=== PATIENT | female | born 1955 | race Caucasian/White ===

== ENCOUNTER 2017-01-22 06:51 | Inpatient (IN) | payer OTHER ==
--- NOTE | 2017-01-07 21:43 | HP ---
PREOPERATIVE HISTORY AND PHYSICAL: DATE OF PREOPERATIVE HISTORY AND PHYSICAL EXAMINATION: 01/07/17. DATE OF ADMISSION: This patient is scheduled for admission by Dr. Torres on 01/22/17. ATTENDING SURGEON: James Torres MD (dictated by Kay Palma NP) CHIEF COMPLAINT: Morbid obesity. HISTORY OF PRESENT ILLNESS: The patient is a 61-year-old morbidly obese female with a body mass index of 33.7 with obesity-related comorbidities of poorly- controlled type 2 diabetes, hypertension, and degenerative joint disease. She is seeking bariatric surgery as a more permanent solution to her poorly controlled type 2 diabetes, hypertension and degenerative joint disease and also her inability to sustain significant weight loss with conventional means. She has completed all of the necessary preoperative diagnostic evaluations, testing, and has been deemed an appropriate candidate by Dr. Torres to proceed with laparoscopic Adrianne-en-Y gastric bypass. Dr. Torres has discussed the nature of the surgical procedure, the expected results of surgery, the relevant risks, benefits, and alternatives and today, I have reviewed the typical hospitalization, postoperative care, and recovery. The patient understands the need for compliance with postop stages of the diet, vitamin and mineral supplementation, exercise and followup appointments with Dr. Torres and the dietitian. The patient has had a chance to ask questions and stated that she understands the information and is satisfied with the answers given to her questions. She will sign surgical consent on the day of surgery. PAST MEDICAL HISTORY: Significant for poorly-controlled type 2 diabetes, hypertension, degenerative joint disease of knees and ankles, urinary stress incontinence, and GERD. PAST SURGICAL HISTORY: Arthroscopy of the right knee by Dr. Hobson about 8 months ago, tubal ligation, right elbow surgery for ulnar nerve repair, umbilical hernia repair in infancy. MEDICATIONS: 1. Lisinopril/hydrochlorothiazide 20/25 mg 1 tablet by mouth daily. 2. Repaglinide 0.5 mg 1 tablet 3 times a day before meals, which Dr. Whipple has instructed the patient to discontinue preoperatively. 3. Toujeo SoloSTAR 300 units/mL 66 units subcutaneously twice a day. 4. Aspirin 81 mg p.o. daily and she will hold the aspirin for 1 week preoperatively. 5. Januvia 100 mg p.o. daily, which she will stop preoperatively. 6. Celebrex 100 mg p.o. b.i.d. as needed and she will also stop that preoperatively. ALLERGIES: No known drug allergies. SOCIAL HISTORY: She is and has 3 children. She states that she has good support from her . 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 She denies the use of tobacco or other substances and alcohol intake is typically 1 drink per week. FAMILY HISTORY: Father at age 60 from heart failure with a history of COPD and obesity. Mother , age 83, with the history of TIAs. One of her brother is status post gastric bypass with resolution of his type 2 diabetes ; all of her siblings have been diagnosed with diabetes. No family history of anesthesia problems, bleeding tendencies, or clotting disorders. REVIEW OF SYSTEMS: General: She denies any recent acute illnesses. HEENT: Benign. Cardiovascular: She is treated for hypertension. She denies any history of chest pain, palpations, NH or angina or heart murmur. Respiratory: Denies any history of asthma, chronic cough, shortness of breath or pneumonia. She has never been tested for sleep apnea. She denies any history of deep vein thrombosis or pulmonary embolism. She denies any previous anesthesia complications. She denies any bleeding tendencies and has never received a blood transfusion. Gastrointestinal: She has occasional acid reflux. She underwent upper endoscopy in January 2016, reported as normal. No evidence of erosive esophagitis. Gallbladder ultrasound revealed a normal gallbladder. Genitourinary: She has stress urinary incontinence. No other problems reported. Musculoskeletal: She has complaints of knee and ankle pain and underwent arthroscopy of the right knee about 8 months ago and has a history of degenerative joint disease. She denies any history of anxiety or depression. Endocrine: She is treated for type 2 diabetes, which has been difficult to control. Dr. Whipple manages her diabetes and gave her guidelines for adjusting her insulin while she is on the preop diet. She states that her fingerstick blood sugar is typically in the 200 range, but can be as high as 300. She denies any history of thyroid dysfunction. PHYSICAL EXAMINATION GENERAL SURVEY: The patient is a 61-year-old morbidly obese female, in no acute distress. VITAL SIGNS: Height 67 inches, weight 219 pounds, body mass index 34.3, blood pressure 126/82, pulse 90, respiratory rate 16, temperature 98, tympanic. HEENT: Benign. NECK: Supple. No cervical lymphadenopathy. No thyromegaly. BACK: No CVA tenderness. LUNGS: Breath sounds bilaterally clear and equal. HEART: Regular rate and rhythm. No murmurs or rubs appreciated. ABDOMEN: Obese, soft, nondistended, nontender throughout. No obvious masses, organomegaly or evidence of umbilical hernia. PELVIC: Exam deferred. RECTAL: Exam deferred. EXTREMITIES: Warm without edema or skin ulcerations. NEUROLOGIC: Alert and oriented x3. Steady gait. SKIN: Warm, dry, and intact. IMPRESSION: 1. Morbid obesity. 2. Poorly-controlled type 2 diabetes. 3. Hypertension. PLAN: AA admission to Dr. Torres' service for laparoscopic Adrianne-en-Y gastric bypass on 01/22/17. KAY PALMA NP CC: Dr. James Torres, [facility]; Dr. Liz Bennett; Dr. Doe Whipple * [id number]/[facility] #: [id number] MTDD
[~2017-01-22 06:51] MED LIST: Buffered Lidocaine 1% SYRIN* 3 ML/SYR SYRINGE INTRADERM ONE; Dexamethasone IV* 4 MG/ML 1 ML (4 MG) IV SLOW PU ONE
[2017-01-22] MEDS ORDERED: Bupivacaine 0.5% W/EPI SDV* 30 ML VIAL ONE (07:15)
[2017-01-22] MEDS ORDERED: Methylene Blue 1% (ANTIDOTE)* 10 MG/ML 1 ML SDV VIAL IVPB ONE (07:16)
[2017-01-22] MEDS ORDERED: ceFAZolin 2 GM PREMIX(*) 2 GM/50 ML BAG IVPB ONE (07:23)
[2017-01-22] MEDS ORDERED: Clindamycin 900 MG IVPREMIX(* 900 MG/50 ML SDV IV ONE (07:23)
[2017-01-22] MEDS ORDERED: Dexamethasone IV* 4 MG/ML 1 ML (4 MG) ONE (07:23)
[2017-01-22] MEDS ORDERED: ceFAZolin 1 GM in Dextrose (*) 1 GM/50 ML BAG IVPB ONE (07:23)
[2017-01-22] MEDS ORDERED: Heparin VIAL(*) 5000 UNITS/ML VIAL (FIVE THOUSAND) ONE (07:23)
[2017-01-22] MEDS ORDERED: fentaNYL* 50 MCG/ML 5 ML VIAL (250 MCG VIAL) ONE (07:41)
[2017-01-22] MEDS ORDERED: Midazolam* 1 MG/ML 5 ML VIAL (5 MG) ONE (07:41)
[2017-01-22] MEDS ORDERED: Atracurium* 10 MG/ML 10 ML VIAL ONE (07:41)
[2017-01-22] MEDS ORDERED: Ketorolac INJ* 30 MG/ML 1 ML VIAL ONE (07:42)
[2017-01-22] MEDS ORDERED: Lidocaine 2% PF* 5 ML VIAL ONE (07:42)
[2017-01-22] MEDS ORDERED: Propofol* 10 MG/ML 20 ML BTL IV PUSH ONE (07:42)
[2017-01-22] MEDS ORDERED: Ondansetron INJ* 2 MG/ML VIAL ONE (07:42)
[2017-01-22] MEDS ORDERED: Scopolamine 1.5 mg* PATCH TRANSDERM PRN (08:03)
[2017-01-22] MEDS ORDERED: HYDROmorphone* 1 MG/ML 1 ML SYR IV PRN ×2 (08:03→10:14)
[2017-01-22] MEDS ORDERED: Ondansetron INJ* 2 MG/ML VIAL IV PRN ×2 (08:03→10:14)
[2017-01-22] MEDS ORDERED: fentaNYL* 50 MCG/ML 2 ML VIAL (100 MCG VIAL) IV PRN (08:03)
[2017-01-22] MEDS ORDERED: DiMENhydriNATE IV* 50 MG/ML VIAL IV PUSH PRN (08:03)
[2017-01-22] MEDS ORDERED: EPHEDrine (Pressors)* 50 MG/ML VIAL ONE (08:27)
[2017-01-22] MEDS ORDERED: Glycopyrrolate IV* 0.2 MG/ML 1 ML VIAL ONE (08:46)
[2017-01-22] MEDS ORDERED: Phenylephrine IV* 40 MCG/ML 10 ML SYRINGE ONE (08:55)
[2017-01-22] MEDS ORDERED: diPHENhydraMINE IV* 50 MG/ML 1 ml VIAL (BENADRYL) SLOW PUSH PRN (10:14)
[2017-01-22] MEDS ORDERED: Acetaminophen ADULT LIQ* 650 MG/20.3 ML UDC PO PRN (10:14)
[2017-01-22] MEDS ORDERED: HYDROcodone/ACET. 7.5/325 LIQ* 15 ML UDC PO PRN (10:14)
[2017-01-22] MEDS ORDERED: Insulin REGULAR(*) 1 UNITS UNIT SUBCUT SCH (12:00)
[2017-01-22] MEDS: Ketorolac INJ* 30 MG/ML 1 ML VIAL IV PRN ×2 (16:23→22:49)
[2017-01-22] MEDS: Insulin REGULAR(*) 1 UNITS UNIT SUBCUT SCH (18:05)
[2017-01-23] MEDS: Insulin REGULAR(*) 1 UNITS UNIT SUBCUT SCH ×4 (00:06→18:07)
--- NOTE | 2017-01-23 09:14 | PN ---
Progress Note - Progress Note SOAP: Subjective:minimal discomfort,no nausea,voided after ruth out,up walking, passed flatus [] Objective:afeb,VSS,lungs:clear bilat;heart RRR;abd:+bs,soft,dressings intact over incisions,no erythema;ext:nontender Vital Signs Temp 97.4 F 01/23/17 07:58 Pulse 62 01/23/17 07:58 Resp 18 01/23/17 07:58 BP 130/68 01/23/17 07:58 Pulse Ox 95 01/23/17 07:58 Intake & Output 01/22/17 01/23/17 01/23/17 18:59 06:59 18:59 Intake Total 2456 1650 826 Output Total 350 1400 450 Balance 2106 250 376 Weight 207 lb 6.4 oz Intake: IV Fluids 2456 1650 826 LR 2456 1650 826 Oral 0 0 Output: Urine 100 1400 450 Ruth 250 Other: # Bowel Movements 0 # Voids 1 [] Assessment:POD#1 s/p lap gastric bypass,doing well [] Plan:start zhane clears if ok with Dr Torres,ambulate,IS []
[2017-01-23] MEDS: Pantoprazole IV* 40 MG IV SCH (10:20)
--- NOTE | 2017-01-23 11:09 | PN ---
Progress Note - Progress Note SOAP: Subjective: Feels well. Pain controlled. Started drinking. No nausea. Had flatus. Walking about feels good. Objective: Vital Signs Temp 97.4 F 01/23/17 07:58 Pulse 62 01/23/17 07:58 Resp 18 01/23/17 07:58 BP 130/68 01/23/17 07:58 Pulse Ox 95 01/23/17 07:58 Appears NAD, sitting up in chair. Intake & Output 01/22/17 01/23/17 01/23/17 18:59 06:59 18:59 Intake Total 2456 1650 826 Output Total 350 1400 450 Balance 2106 250 376 Weight 207 lb 6.4 oz Intake: IV Fluids 2456 1650 826 LR 2456 1650 826 Oral 0 0 Output: Urine 100 1400 450 Cisneros 250 Other: # Bowel Movements 0 # Voids 1 Assessment: POD#1 s/p LRYGB. Doing well. Plan: Clears. PO meds. Pulm toilet/amb. Likely home in AM.
[2017-01-23] MEDS: D5W 1/2 NS KCl 20 Meq 1000 ML* 1,000 ML IV SCH ×2 (11:57→20:09)
--- NOTE | 2017-01-23 16:03 | OP ---
DATE OF OPERATION: 01/22/17 - ROOM #353 DATE OF : 59 SURGEON: James Torres MD LEARNING DESIGN SPECIALIST: Anirudh Caceres MD ANESTHESIOLOGIST: Dylan Navarro MD ANESTHESIA: General endotracheal. PRE-OP DIAGNOSIS: Class 2 obesity with diabetes. POST-OP DIAGNOSIS: Class 2 obesity with diabetes. OPERATIVE PROCEDURE: Laparoscopic Adrianne-en-Y gastric bypass. ESTIMATED BLOOD LOSS: Less than 50 mL. IV FLUIDS: 2.1 L of crystalloid. SPECIMEN: None. DRAINS: None. COMPLICATIONS: None. COUNTS: The instrument, needle, and sponge counts were correct. DESCRIPTION OF PROCEDURE: The patient was brought to the operating room and placed on the table supine. Sequential compression devices were placed on both lower extremities and general anesthesia was administered. A Cisneros catheter was placed. Her abdomen was prepped and draped in the usual sterile fashion. Intravenous antibiotics were administered. Time-out was performed. Local anesthetic was infiltrated into the skin and soft tissue prior to making each incision. Entry to the abdomen was through a left upper quadrant incision used to accommodate a 12-mm optical trocar. After accessing the peritoneal cavity, carbon dioxide was insufflated to a pressure of 15 mmHg. Under direct visualization, a 12- mm bladeless trocar was placed supraumbilically and also in the right upper quadrant. 5-mm trocars were placed in the right upper quadrant medially and left upper quadrant laterally. A Rafita liver retractor was placed percutaneously in the subxiphoid position and used to elevate the left lobe of the liver. There were omental adhesions to the anterior abdominal wall in the lower abdomen. These were taken down using combination of cautery dissection and LigaSure. After freeing the omentum, the attention was turned to the gastric pouch. A dissection on the anterior aspect of the left el of the diaphragm was performed bluntly to open the retroperitoneum. Next, the perigastric dissection was undertaken on the lesser curvature of the stomach to enter the lesser sac and then with several firings of the Endo DARIO stapler with chaudhry cartridges, a gastric pouch was created approximating 20 to 30 mL volume. The staple lines were noted to be intact and hemostatic. Next, the omentum and transverse colon were retracted superiorly and ligament of Treitz was identified and then jejunum was measured out 50 cm. At this point , the jejunum was sutured to the lateral staple line on the gastric pouch with 2 -0 silk. Next, gastrotomy was created in the pouch, enterotomy created in the proposed Adrianne limb, and then a gastrojejunal anastomosis was created using a 30-mm Endo DARIO stapler with the chaudhry cartridge, and then the common gastroenterotomy was run closed with 3-0 Maxon over a 36-Thai gastric lavage tube. The omega loop of the intestine was divided with the Endo DARIO stapler with the chaudhry cartridge to complete the anastomosis. The anastomosis was then tested with methylene blue dye solution instilled through the orogastric tube with distal occlusion on the Adrianne limb. No leak was identified. The solution was aspirated and the tube was removed. Subsequently, the patient was positioned supine and the Adrianne limb was measured out for 75 cm at which point a functional end-to-side jejunojejunostomy was created using a 60-mm linear stapler with chaudhry cartridge. The common enterotomy was then again run closed with 3-0 Maxon. Finally, the mesenteric defect for jejunojejunostomy was closed with 3-0 silk in running fashion. After assuring hemostasis, the Rafita liver retractor was removed and the ports removed, and the carbon dioxide was released from the abdomen. The skin incisions were closed with lawrence and dressings were applied. The patient tolerated this procedure well. She was extubated uneventfully and she was transferred to the recovery room in stable condition. CC: Liz Bennett MD * [id number]/[facility] #: [id number] KARINA
[2017-01-24] MEDS: Insulin REGULAR(*) 1 UNITS UNIT SUBCUT SCH ×3 (00:04→11:28)
[2017-01-24] MEDS: D5W 1/2 NS KCl 20 Meq 1000 ML* 1,000 ML IV SCH (04:33)
[2017-01-24] MEDS: Ketorolac INJ* 30 MG/ML 1 ML VIAL IV PRN (04:42)
[2017-01-24 07:48] VITALS: BP 138/74
[2017-01-24] MEDS: Pantoprazole IV* 40 MG IV SCH (09:22)
--- NOTE | 2017-01-24 09:50 | PN ---
Progress Note - Progress Note SOAP: Subjective: Feels well. Tolerating po well. Voiding and having flatus. Pain controlled with oral meds. Objective: [] Vital Signs Temp 98.0 F 01/24/17 07:28 Pulse 68 01/24/17 07:28 Resp 18 01/24/17 08:00 BP 138/74 01/24/17 07:28 Pulse Ox 95 01/24/17 08:00 Abd: ND, soft, incis c/d/i, no erythema, NT. Intake & Output 01/23/17 01/24/17 01/24/17 18:59 06:59 18:59 Intake Total 1309 1999 Output Total 1400 2500 400 Balance -91 -501 -400 Intake: IV Fluids 1234 1909 D5W 1/2 NS 20 meq KCL 1909 LR 1234 Oral 75 90 Output: Urine 1400 2500 400 Assessment: []POD#2 s/p LRYGB. Doing well. Plan: Home today. Continue lisinopril and insulin SS at home. She has f/u with Dr. Whipple planned. RTO next week for lawrence.
[2017-01-25] MEDS ORDERED: Scopolomine PATCH Remove* 1 NOTE MISC PATCH OFF ONE (08:04)
== END 2017-01-24 11:48 | disposition home or self-care (01) | DRG 621 ==
LOC: AA 06:51 → SSU 12:07
PROVIDERS: ADMIT Surgery; ATTEND Surgery
PROC: 0D164ZA Bypass Stomach to Jejunum, Percutaneous Endoscopic Approach (ICD-10-PCS; principal; 2017-01-22 08:00)
DX: E66.01 Morbid (severe) obesity due to excess calories (principal); E11.65 Type 2 diabetes mellitus with hyperglycemia; I10 Essential (primary) hypertension; N39.3 Stress incontinence (female) (male); K21.9 Gastro-esophageal reflux disease without esophagitis; M19.072 Primary osteoarthritis, left ankle and foot; M19.071 Primary osteoarthritis, right ankle and foot; M17.0 Bilateral primary osteoarthritis of knee; Z68.33 Body mass index [BMI] 33.0-33.9, adult; Z98.51 Tubal ligation status; Z82.49 Family history of ischemic heart disease and other diseases of the circulatory system; Z83.3 Family history of diabetes mellitus; Z82.5 Family history of asthma and other chronic lower respiratory diseases; Z84.89 Family history of other specified conditions; Z82.0 Family history of epilepsy and other diseases of the nervous system; Z79.4 Long term (current) use of insulin
CPT/HCPCS: 94760; C1776; J0690; J1100; J1170; J1644; J1885; J2250; J2405; J2704; J3010

== ENCOUNTER 2017-12-27 15:50 | Emergency (ER) | payer OTHER ==
[2017-12-27 15:58] VITALS: BP 141/90
--- OUTSIDE RECORDS SUMMARY | 2017-12-27 15:59 | XMS REPORT ---
:1955 External Reference #:[id number] Author Organization [facility] Address [address] [address] Phone [phone] Care Team Providers Name Role Phone Liz Bennett MD Primary Care Physician Unavailable Payers Type Date Identification Numbers Payment Provider Subscriber Commercial Policy Number: [id number] [employer] Celia Randall Branham Group Number: [id number] [address] PayID: [id number] [place] [address] Commercial Effective: 2015 Policy Number: [id number] [facility] Group Name: [facility] [address] PayID: [id number] [place] [address] Commercial Effective: 2012 Policy Number: Lifetime Benefit Jack Yonas [id number] Solution Expires: 2016 Group Number: [id number] [address] PayID: [place] [address] Medigap Part B Expires: 2014 Policy Number: [id number] [employer] Jack Group Number: [id number] [address] PayID: [place] [address] Problems Date Description Provider Status Onset: 02/05/2010 Benign essential hypertension Liz Bennett M.D. Active Onset: 12/15/2013 Type 2 diabetes mellitus Liz Bennett M.D. Active Onset: 05/17/2015 Chondromalacia of patella Austyn Hobson M.D. Active Onset: 05/17/2015 Derangement of knee Austyn Hobson M.D. Active Onset: 03/01/2016 Encounter for other orthopedic Austyn Hobson M.D. Active aftercare Family History Date Family Member(s) Problem(s) Comments General Diabetes : (age 60 Father due to CHF ephysema. Years) : (age 83 Mother due to Natural HI in her 70s Years) Causes Siblings Siblings: 3; 2 have DM. had gastric bypass and Twin brother has DM his diabetes resolved. First Brother Diabetes Second Brother Diabetes Type II First Sister Diabetes Type II Social History Type Date Description Comments Marital Status Lives With Occupation assistant director at [employer] Cigarette Use Never Smoked Cigarettes Smoked for 2 years and quit age 24 ETOH Use Rarely consumes alcohol Smoking Patient is a former smoker Exercise Type/Frequency Exercises regularly Allergies, Adverse Reactions, Alerts Date Description Reaction Status Severity Comments 06/23/2010 No Known Drug Allergy active Medications Medication Date Status Form Strength Qnty SIG Indications Ordering Provider Atorvastatin 12/09 Active Tablets 10mg 30tab 10/22 by E11.9 Liz Calcium /2017 s mouth Cotton, every day M.D. Glucocom Blood 11/30 Active Kit W/Device 1unit for use E11.65 Liz Glucose /2014 s once daily Cotton, Monitoring 250.02 M.D. System Multivitamin Active Chewtabs once a day Unknown Adult /0000 Vitamin B12 Active Tablets ER 500mcg 1 by mouth Unknown /0000 3 times a week Caltrate 600+D Active Tablets 600-800mg take one Unknown /0000 -Unit capsule/ta blet by mouth once daily Premarin Active Cream 0.625mg/G once Husseini, /0000 M weekly MD Benjamin Vitamin D-3 Active Capsules 1000Unit 1 by mouth Unknown /0000 every day Biotin Active Capsules 5000mcg 1 tab Unknown / daily otc Align Active Capsules 4mg 1 po daily Unknown / Terconazole 06/06 Hx Cream 0.4% 45gm apply N77.1 Liz /2017 intravagin Cotton, ally once M.D. daily at bedtime for 7 days Lisinopril-Edwall 03/20 Hx Tablets 10-12.5mg 30tab Not Taking I10 Liz chlorothiazide /2016 s 1 by mouth Cotton, - every day M.D. 06/06 Hydrocodone 01/07 Hx Solution 7.5-325mg 240ml 10ml-15ml Karoline Bitartrate/Aceta /2017 /15ML by mouth B. 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 12/06 Byetta 5 mcg Pen 01/22 Hx Solution 5mcg/0.02 1.200 Iinject 5 E11.65 Pen-Inject ML ml mcg s/c Cotton, - twice M.D. 02/05 daily take an hour prior to meal Lantus Solostar 01/03 Hx Solution 100Unit/M QS inject 40 E11.65 Pen-Inject L units Cotton, - twice a M.D. Pen Dumont 01/03 Hx Misc 100un for use its once daily Cotton, with M.D. lantus solostar pen Celebrex 12/20 Hx Capsules 100mg 60cap Start with M22.2x1 s one tab Joce, - daily by M.D. 02/05 mouth, increase to one tab twice a day Tramadol HCL 12/20 Hx Tablets 50mg 60tab 1-2 tabs M22.2x1 s by mouth Joce, - q4-6 hours M.D. 02/05 as needed pain Byetta 5 mcg Pen 11/08 Hx Solution 5mcg/0.02 1.200 Iinject 5 E11.65 Pen-Inject ML ml mcg s/c Cotton, - twice M.D. 01/03 daily take an hour prior to meal Januvia 11/08 Hx Tablets 100mg 30tab 1 by mouth E11.65 Liz s every day Cotton, - M.D. 01/25 Meloxicam 08/02 Hx Tablets 7.5mg 60tab take one M22.2x1 s to two Joce, - tabs in M.D. 11/08 morning. do not take more than 2 tabs in one day. Janumet 12/30 Hx Tablets 50-500mg 30tab 1 PO qd E11.65 s Donald, - M.D. 11/08 Metformin HCL ER 11/30 Hx Tablets ER 500mg 90tab 2 by mouth 250.02 24HR s every day Donald, - for 2 M.D. 12/30 weeks, then 3 daily Glucocom Lancets 11/30 Hx Misc 33G 30uni for use . Liz G ts once daily Karin Bennett Onetouch Ultra 11/30 Hx Strips 100un for E11. its testing up Donald, to 3 times M.D. daily - on insulin Metformin HCL 08/05 Hx Tablets 500mg 30tab 1/2 PO qd 250.00 s x 2 weeks, Donald, - then whole M.D. 11/30 pill qd. TAke it in the evening Trazodone HCL 08/05 Hx Tablets 50mg 30tab 1/2-1 780.52 s tablet Donald, - once daily M.D. 01/25 at bedtime Lisinopril-Edwall 03/22 Hx Tablets 20-25mg 90tab 1 by mouth I10 Liz chlorothiazide s every day Trae Bennett M.DElizabeth 03/20 Guaifenesin/Code 10/28 Hx Syrup 100-10mg/ 120ml 1-2 tsp po 465.9 Liz ine 5ML q 4 h Trae Bennett MElizabethDElizabeth 12/15 Clindamycin HCL 05/19 Hx Capsules 300mg 28cap one po qid 462 s for 7 days Varn, N.P. - 05/26 Azithromycin 04/30 Hx Tablets 250mg 6tabs two tabs 462 day one, Varn, N.P. - one daily 05/06 till [place] 12/10 Hx Tablets 5-325mg 40tab 1-2 po Kalina /2013 s q4-6 hr Travis, - prn pain M.D. 02/13 Ciprofloxacin 06/03 Hx Tablets 250mg 14tab one po bid 599.0 Melissa s for 7 days Varn, N.P. - 06/10 Pyridium 06/03 Hx Tablets 100mg 9tabs one po tid 599.0 Melissa for 3 days Varn, N.P. - 06/06 Azithromycin 12/19 Hx Tablets 250mg 6tabs two tabs day one, Cotton, - one daily M.D. 12/29 till Fluticasone 12/19 Hx Suspension 50mcg/Act 1unit 1 spray Liz Propionate s each Cotton, - nostril M.D. 01/02 daily needed Tobramycin 12/17 Hx Solution 0.3% 5ml 2 gtts in 372.00 Liz Sulfate each eye Cotton, - every 4 M.D. 12/23 hours while awake for 7 days Ciprofloxacin 11/29 Hx Tablets 250mg 6tabs 1 po bid Liz HCL for 3 days Donald - M.D. 12/17 Phenazopyridine 11/29 Hx Tablets 200mg 6tabs 1 po tid x 2 days Donald - M.D. 12/17 Fluticasone 09/29 Hx Suspension 50mcg/Act 16gm 2 477.9 Liz Propionate intranasal Cotton, - puffs once M.D. 12/17 Lisinopril/Edwall 08/24 Hx Tablets 20-12.5mg 30tab take 1 401.1 Liz chlorothiazide /2009 s tablet by Cotton, - mouth once M.D. 03/22 Lisinopril/Edwall 06/23 Hx Tablets 10-12.5mg 90tab 1 tablet 401.1 Liz chlorothiazide s by mouth Cotton, - once daily M.D. 08/24 Lisinopril 02/05 Hx Tablets 5mg 30tab 1 by mouth 401.1 Liz /2009 s once daily Trae Bennett M.D. 06/23 Glucosamine Hx Capsules 1 by mouth Unknown Chondroitin every day - 12/20 Repaglinide Hx Tablets 0.5mg take one Law Doe, tablet by MD mouth three times a day before meals discontinu ed Tomuangela Solostar Hx Solution 300Unit/M 66 units E11.65 Doe Whipple, Pen-Inject L sc twice a MD day Aspirin Hx Tablets DR 81mg 1 by mouth Unknown / every day Vitamin D3 Adult Hx Chewtabs 1000Unit 2 tab Unknown Gummies daily Metronidazole Hx Gel 0.75% Lamar Kim Amor MD Medications Administered in Office Medication Date Status Form Strength Qnty SIG Indications Ordering Provider Depomedrol Administered Injection Narayan F 40MG 016 MD Kim Synvisc Or Administered Injection Carrie Synvisc-One 016 Nicolas, Injection 1 MG ANP-C Synvisc Or Administered Injection Carrie Synvisc-One 016 Nicolas, Injection 1 MG ANP-C Synvisc Or Administered Injection Carrie Synvisc-One 016 Nicolas, Injection 1 MG ANP-C Synvisc Or Administered Injection Carrie Synvisc-One 016 Nicolas, Injection 1 MG ANP-C Synvisc Or Administered Injection Carrie Synvisc-One 016 Nicolas, Injection 1 MG ANP-C Synvisc Or Administered Injection Carrie Synvisc-One 016 Nicolas, Injection 1 MG ANP-C Depomedrol Administered Injection Acrrie 80MG 015 Nicolas, ANP-C Immunizations CPT Code Status Date Vaccine Reaction Lot # [id number] Given 12/09/2017 Tdap - No immediate reaction [id number] Tetanus/Diptheria/Acellul noted. ar Pertussis 26552 Given 12/15/2013 Pneumonia Vaccine [id number] Vital Signs Date Vital Result Comment 12/09/2017 Height 66.25 inches 5'6.25" Weight 133.00 lb Heart Rate 63 /min BP Systolic Sitting 135 mmHg BP Diastolic Sitting 85 mmHg Body Temperature 97.5 F O2 % BldC Oximetry 98 % BMI (Body Mass Index) 21.3 kg/m2 Waist Circumference 31 11/15/2017 Height 67 inches 5'7" Weight 135.00 lb Heart Rate 72 /min BP Systolic Sitting 116 mmHg BP Diastolic Sitting 80 mmHg Respiratory Rate 18 /min Body Temperature 97.2 F BMI (Body Mass Index) 21.1 kg/m2 08/09/2017 Height 67 inches 5'7" Weight 145.00 lb Heart Rate 80 /min BP Systolic 118 mmHg BP Diastolic 80 mmHg Respiratory Rate 16 /min Body Temperature 98.0 F BMI (Body Mass Index) 22.7 kg/m2 06/06/2017 Height 67 inches 5'7" Weight 158.00 lb Heart Rate 69 /min BP Systolic 138 mmHg BP Diastolic 84 mmHg Body Temperature 97.5 F O2 % BldC Oximetry 98 % BMI (Body Mass Index) 24.7 kg/m2 05/09/2017 Height 67 inches 5'7" Weight 159.00 lb Heart Rate 60 /min BP Systolic 110 mmHg BP Diastolic 62 mmHg Respiratory Rate 16 /min Body Temperature 97.6 F BMI (Body Mass Index) 24.9 kg/m2 02/20/2017 Weight 182.00 lb Heart Rate 68 /min BP Systolic 148 mmHg BP Diastolic 86 mmHg Respiratory Rate 18 /min Body Temperature 98.7 F 01/30/2017 Height 67 inches 5'7" Weight 198.00 lb Heart Rate 84 /min BP Systolic 110 mmHg BP Diastolic 70 mmHg Respiratory Rate 16 /min Body Temperature 99.3 F BMI (Body Mass Index) 31.0 kg/m2 01/25/2017 Weight 209.50 lb Heart Rate 87 /min BP Systolic Sitting 144 mmHg BP Diastolic Sitting 80 mmHg Body Temperature 98.6 F O2 % BldC Oximetry 97 % 01/07/2017 Height 67 inches 5'7" Weight 219.00 lb Heart Rate 102 /min BP Systolic 126 mmHg BP Diastolic 82 mmHg Respiratory Rate 16 /min Body Temperature 98.0 F BMI (Body Mass Index) 34.3 kg/m2 12/06/2016 Height 67 inches 5'7" Weight 215.00 lb Heart Rate 84 /min BP Systolic Sitting 106 mmHg BP Diastolic Sitting 68 mmHg Body Temperature 97.8 F BMI (Body Mass Index) 33.7 kg/m2 09/19/2016 Height 67 inches 5'7" Weight 211.00 lb Respiratory Rate 17 /min Body Temperature 98.6 F Pain Level 4 BMI (Body Mass Index) 33.0 kg/m2 06/05/2016 Weight 211.00 lb Heart Rate 88 /min BP Systolic Sitting 128 mmHg BP Diastolic Sitting 76 mmHg Respiratory Rate 15 /min Body Temperature 98.2 F O2 % BldC Oximetry 97 % 05/01/2016 Height 67 inches 5'7" Weight 211.00 lb Pain Level 0 BMI (Body Mass Index) 33.0 kg/m2 04/20/2016 Height 67 inches 5'7" Weight 211.00 lb Heart Rate 85 /min BP Systolic Sitting 114 mmHg BP Diastolic Sitting 68 mmHg Body Temperature 98.0 F O2 % BldC Oximetry 96 % BMI (Body Mass Index) 33.0 kg/m2 03/21/2016 Height 67 inches 5'7" Weight 211.00 lb Pain Level 2 BMI (Body Mass Index) 33.0 kg/m2 03/08/2016 Weight 211.00 lb Heart Rate 94 /min BP Systolic Sitting 109 mmHg BP Diastolic Sitting 76 mmHg Body Temperature 98.9 F O2 % BldC Oximetry 96 % 03/01/2016 Height 67 inches 5'7" Weight 205.00 lb Body Temperature 98.5 F Pain Level 2 at night BMI (Body Mass Index) 32.1 kg/m2 02/15/2016 Height 67 inches 5'7" Weight 205.00 lb Heart Rate 75 /min BP Systolic 126 mmHg BP Diastolic 75 mmHg BMI (Body Mass Index) 32.1 kg/m2 02/07/2016 Height 66.25 inches 5'6.25" Weight 208.50 lb Heart Rate 86 /min BP Systolic Sitting 126 mmHg BP Diastolic Sitting 82 mmHg Body Temperature 97.8 F Pain Level 0 O2 % BldC Oximetry 96 % BMI (Body Mass Index) 33.4 kg/m2 12/21/2015 Height 66.25 inches 5'6.25" Weight 208.00 lb Respiratory Rate 16 /min Pain Level 6 BMI (Body Mass Index) 33.3 kg/m2 11/09/2015 Height 66.25 inches 5'6.25" Weight 208.00 lb Pain Level 7 BMI (Body Mass Index) 33.3 kg/m2 11/08/2015 Height 66.25 inches 5'6.25" Weight 208.00 lb Heart Rate 78 /min BP Systolic Sitting 124 mmHg BP Diastolic Sitting 80 mmHg Respiratory Rate 15 /min Body Temperature 98.2 F O2 % BldC Oximetry 96 % BMI (Body Mass Index) 33.3 kg/m2 11/02/2015 Height 66.25 inches 5'6.25" Weight 204.00 lb BMI (Body Mass Index) 32.7 kg/m2 09/22/2015 Height 66.25 inches 5'6.25" Weight 204.00 lb BMI (Body Mass Index) 32.7 kg/m2 08/02/2015 Height 66.25 inches 5'6.25" Weight 204.00 lb Pain Level 7 BMI (Body Mass Index) 32.7 kg/m2 07/26/2015 Height 66.25 inches 5'6.25" Weight 204.00 lb Heart Rate 80 /min BP Systolic 109 mmHg BP Diastolic 71 mmHg Body Temperature 98.2 F O2 % BldC Oximetry 95 % BMI (Body Mass Index) 32.7 kg/m2 06/14/2015 Height 66.5 inches 5'6.50" Weight 199.00 lb Pain Level 7 BMI (Body Mass Index) 31.6 kg/m2 05/17/2015 Height 66.5 inches 5'6.50" Weight 199.00 lb Heart Rate 79 /min BP Systolic Sitting 124 mmHg BP Diastolic Sitting 77 mmHg Pain Level 7 BMI (Body Mass Index) 31.6 kg/m2 03/15/2015 Height 66.5 inches 5'6.50" Weight 199.00 lb Heart Rate 89 /min BP Systolic 98 mmHg BP Diastolic 69 mmHg Body Temperature 98.5 F BMI (Body Mass Index) 31.6 kg/m2 12/30/2014 Weight 214.00 lb Heart Rate 108 /min BP Systolic Sitting 116 mmHg BP Diastolic Sitting 76 mmHg Body Temperature 99.1 F 11/30/2014 Weight 214.00 lb Heart Rate 88 /min BP Systolic Sitting 120 mmHg BP Diastolic Sitting 77 mmHg 08/05/2014 Height 66.5 inches 5'6.50" Weight 206.00 lb Heart Rate 86 /min BP Systolic Sitting 120 mmHg BP Diastolic Sitting 68 mmHg BMI (Body Mass Index) 32.7 kg/m2 03/22/2014 Weight 199.50 lb Heart Rate 80 /min BP Systolic Sitting 138 mmHg BP Diastolic Sitting 89 mmHg 01/13/2014 Weight 201.00 lb Heart Rate 86 /min BP Systolic Sitting 122 mmHg BP Diastolic Sitting 76 mmHg Respiratory Rate 16 /min Body Temperature 98.4 F 12/15/2013 Weight 207.25 lb Heart Rate 84 /min BP Systolic Sitting 130 mmHg BP Diastolic Sitting 78 mmHg Respiratory Rate 16 /min Body Temperature 98.5 F 10/28/2013 Weight 206.00 lb Heart Rate 86 /min BP Systolic Sitting 122 mmHg BP Diastolic Sitting 80 mmHg Body Temperature 97.4 F 05/19/2013 Weight 190.00 lb Heart Rate 88 /min BP Systolic Sitting 124 mmHg BP Diastolic Sitting 72 mmHg Body Temperature 98.7 F 05/06/2013 Weight 186.00 lb Heart Rate 88 /min BP Systolic Standing 130 mmHg BP Diastolic Standing 84 mmHg 04/30/2013 Weight 194.50 lb Heart Rate 115 /min BP Systolic Standing 135 mmHg BP Diastolic Standing 80 mmHg Body Temperature 101.7 F 02/13/2013 Weight 197.00 lb Heart Rate 78 /min BP Systolic Sitting 124 mmHg BP Diastolic Sitting 82 mmHg 12/10/2012 Height 66.50 inches 5'6.50" Weight 200.00 lb Heart Rate 80 /min BP Systolic Sitting 124 mmHg BP Diastolic Sitting 80 mmHg BMI (Body Mass Index) 31.8 kg/m2 06/03/2012 Height 66.5 inches 5'6.50" Weight 176.00 lb Heart Rate 76 /min BP Systolic Sitting 130 mmHg BP Diastolic Sitting 76 mmHg Body Temperature 98.9 F BMI (Body Mass Index) 28.0 kg/m2 06/03/2012 Height 66.5 inches 5'6.50" 05/09/2012 Height 66.5 inches 5'6.50" Weight 169.00 lb Heart Rate 68 /min BP Systolic Sitting 124 mmHg BP Diastolic Sitting 70 mmHg BMI (Body Mass Index) 26.9 kg/m2 12/17/2011 Height 66.5 inches 5'6.50" Weight 184.00 lb Heart Rate 84 /min BP Systolic Sitting 122 mmHg BP Diastolic Sitting 76 mmHg Body Temperature 98.7 F BMI (Body Mass Index) 29.3 kg/m2 11/29/2011 Height 66.5 inches 5'6.50" Weight 187.00 lb Heart Rate 76 /min BP Systolic Sitting 124 mmHg BP Diastolic Sitting 86 mmHg Body Temperature 97.7 F BMI (Body Mass Index) 29.7 kg/m2 11/09/2011 Height 66.5 inches 5'6.50" Weight 196.00 lb Heart Rate 76 /min BP Systolic Sitting 124 mmHg BP Diastolic Sitting 76 mmHg BMI (Body Mass Index) 31.2 kg/m2 04/02/2011 Height 66.5 inches 5'6.50" Weight 190.00 lb Heart Rate 78 /min BP Systolic Sitting 122 mmHg BP Diastolic Sitting 70 mmHg BMI (Body Mass Index) 30.2 kg/m2 09/29/2010 Weight 197.75 lb Heart Rate 78 /min BP Systolic 130 mmHg BP Diastolic 80 mmHg 08/24/2010 Weight 201.50 lb Heart Rate 84 /min BP Systolic 136 mmHg BP Diastolic 90 mmHg 06/23/2010 Weight 202.50 lb BP Systolic 142 mmHg BP Diastolic 88 mmHg 02/06/2010 Height 66.5 inches 5'6.50" Weight 195.00 lb Heart Rate 98 /min BP Systolic 158 mmHg BP Diastolic 82 mmHg BMI (Body Mass Index) 31.0 kg/m2 Results Test Date Test Result H/L Range Note CBC Auto Diff 11/05/2017 White Blood Count 5.5 10^3/uL 3.5-10.8 Red Blood Count 4.26 10^6/uL 4.0-5.4 Hemoglobin 13.0 g/dL 12.0-16.0 Hematocrit 39 % 35-47 Mean Corpuscular Volume 91 fL 80-97 Mean Corpuscular Hemoglobin 31 pg 27-31 Mean Corpuscular HGB Conc 34 g/dL 31-36 Red Cell Distribution Width 14 % 10.5-15 Platelet Count 209 10^3/uL 150-450 Mean Platelet Volume 8 um3 7.4-10.4 Abs Neutrophils 3.1 10^3/uL 1.5-7.7 Abs Lymphocytes 1.9 10^3/uL 1.0-4.8 Abs Monocytes 0.3 10^3/uL 0-0.8 Abs Eosinophils 0.1 10^3/uL 0-0.6 Abs Basophils 0.1 10^3/uL 0-0.2 Abs Nucleated RBC 0 10^3/uL Granulocyte % 55.5 % 38-83 Lymphocyte % 34.5 % 25-47 Monocyte % 6.3 % 1-9 Eosinophil % 2.5 % 0-6 Basophil % 1.2 % 0-2 Nucleated Red Blood Cells % 0 Urine Microalbumin Random 11/05/2017 Ur Microalbumin (mg/L) < 15.0 mg/L Urine Creatinine 90.59 mg/dL Urine Microalbumin/Creatinine TNP ug/mg <31 1 Comp Metabolic Panel 11/05/2017 Sodium 141 mmol/L 133-145 Potassium 4.2 mmol/L 3.5-5.0 Chloride 104 mmol/L 101-111 Co2 Carbon Dioxide 32 mmol/L 22-32 Anion Gap 5 mmol/L 2-11 Glucose 98 mg/dL 70-100 Blood Urea Nitrogen 13 mg/dL 6-24 Creatinine 0.56 mg/dL 0.51-0.95 BUN/Creatinine Ratio 23.2 High 8-20 Calcium 9.7 mg/dL 8.6-10.3 Total Protein 6.8 g/dL 6.4-8.9 Albumin 4.1 g/dL 3.2-5.2 Globulin 2.7 g/dL 2-4 Albumin/Globulin Ratio 1.5 1-3 Total Bilirubin 0.40 mg/dL 0.2-1.0 Alkaline Phosphatase 115 U/L High 34-104 Alt 24 U/L 7-52 Ast 22 U/L 13-39 Egfr Non- 110.4 >60 Egfr 142.0 >60 2 Lipid Profile (Trig/Chol/HDL) 11/05/2017 Triglycerides 95 mg/dL 3 Cholesterol 161 mg/dL 4 HDL Cholesterol 46.3 mg/dL 5 LDL Cholesterol 96 mg/dL 6 Iron & Iron Binding Capacity 11/05/2017 Iron 109 g/dL 50-212 Unsaturated Iron Binding 324 g/dL Total Iron Binding Capacity 433 g/dL 250-450 % Iron Saturation 25 % 15-55 Laboratory test finding 11/05/2017 Ferritin 73.5 ng/mL 11-307 Folic Acid (Folate) > 20.00 ng/mL >3.99 Vitamin B12 653 pg/mL 180-914 7 Vitamin D Total 25(Oh) 33.8 ng/mL 20-50 Hemoglobin A1c (Glyco HGB) 5.4 % 4.0-5.6 8 Vitamin E Level 9.9 mg/L 5.5 - 17.0 9 Vitamin B1 (Whole Blood) 123 nmol/L 70-180 10 Urine Culture And 08/30/2017 Urine Culture SEE RESULT BELOW 11, 12 Sensitivities Poc Urinalysis 08/30/2017 Poc Glucose, Trace Negative Urine Poc Bilirubin, Urine 1+ Negative Poc Ketone, Urine Trace Negative Poc Specific Hanna, Urine >=1.030 1.010-1.030 Poc Blood, Urine 3+ Negative Poc pH, Urine 5.5 5-9 Poc Protein, Urine 1+ Negative Poc Urobilinogen, Urine 0.2 Negative Poc Nitrite, Urine Negative Negative Poc Leukocytes, Urine Trace Negative Poc Color, Urine Dark yellow Poc Clarity, Urine Cloudy 13 CBC Auto Diff 07/25/2017 White Blood Count 7.8 10^3/uL 3.5-10.8 Red Blood Count 4.13 10^6/uL 4.0-5.4 Hemoglobin 12.7 g/dL 12.0-16.0 Hematocrit 38 % 35-47 Mean Corpuscular Volume 91 fL 80-97 Mean Corpuscular Hemoglobin 31 pg 27-31 Mean Corpuscular HGB Conc 34 g/dL 31-36 Red Cell Distribution Width 13 % 10.5-15 Platelet Count 233 10^3/uL 150-450 Mean Platelet Volume 8 um3 7.4-10.4 Abs Neutrophils 3.7 10^3/uL 1.5-7.7 Abs Lymphocytes 3.3 10^3/uL 1.0-4.8 Abs Monocytes 0.5 10^3/uL 0-0.8 Abs Eosinophils 0.2 10^3/uL 0-0.6 Abs Basophils 0 10^3/uL 0-0.2 Abs Nucleated RBC 0 10^3/uL Granulocyte % 48.4 % 38-83 Lymphocyte % 42.9 % 25-47 Monocyte % 6.0 % 1-9 Eosinophil % 2.1 % 0-6 Basophil % 0.6 % 0-2 Nucleated Red Blood Cells % 0.1 Iron & Iron Binding Capacity 07/25/2017 Iron 108 g/dL 50-212 Unsaturated Iron Binding 315 g/dL Total Iron Binding Capacity 423 g/dL 250-450 % Iron Saturation 26 % 15-55 Comp Metabolic Panel 07/25/2017 Sodium 140 mmol/L 133-145 Potassium 4.0 mmol/L 3.5-5.0 Chloride 105 mmol/L 101-111 Co2 Carbon Dioxide 29 mmol/L 22-32 Anion Gap 6 mmol/L 2-11 Glucose 97 mg/dL 70-100 Blood Urea Nitrogen 12 mg/dL 6-24 Creatinine 0.54 mg/dL 0.51-0.95 BUN/Creatinine Ratio 22.2 High 8-20 Calcium 9.3 mg/dL 8.6-10.3 Total Protein 6.7 g/dL 6.4-8.9 Albumin 4.0 g/dL 3.2-5.2 Globulin 2.7 g/dL 2-4 Albumin/Globulin Ratio 1.5 1-3 Total Bilirubin 0.30 mg/dL 0.2-1.0 Alkaline Phosphatase 120 U/L High 34-104 Alt 27 U/L 7-52 Ast 25 U/L 13-39 Egfr Non- 115.6 >60 Egfr 148.6 >60 14 Bariatric Panel Post Op 07/25/2017 Ferritin 98.0 ng/mL 11-307 Vitamin B12 873 pg/mL 180-914 15 Folic Acid (Folate) > 20.00 ng/mL >3.99 Vitamin D Total 25(Oh) 47.7 ng/mL 20-50 Vitamin B1 (Whole Blood) 141 nmol/L 70-180 16 Vitamin E Level 12.0 mg/L 5.5 - 17.0 17 Laboratory test finding 05/21/2017 Hemoglobin A1c 5.6 Bariatric Panel Post Op 04/17/2017 Ferritin 92.2 ng/mL 11-307 Vitamin B12 955 pg/mL High 180-914 18 Folic Acid (Folate) > 20.00 ng/mL >3.99 Vitamin D Total 25(Oh) 60.9 ng/mL High 30-50 Vitamin B1 (Whole Blood) 139 nmol/L 70-180 19 Vitamin E Level 9.7 mg/L 5.5 - 17.0 20 Comp Metabolic Panel 04/17/2017 Sodium 138 mmol/L 133-145 Potassium 3.8 mmol/L 3.5-5.0 Chloride 101 mmol/L 101-111 Co2 Carbon Dioxide 29 mmol/L 22-32 Anion Gap 8 mmol/L 2-11 Glucose 94 mg/dL 70-100 Blood Urea Nitrogen 17 mg/dL 6-24 Creatinine 0.57 mg/dL 0.51-0.95 BUN/Creatinine Ratio 29.8 High 8-20 Calcium 9.6 mg/dL 8.6-10.3 Total Protein 7.0 g/dL 6.4-8.9 Albumin 4.2 g/dL 3.2-5.2 Globulin 2.8 g/dL 2-4 Albumin/Globulin Ratio 1.5 1-3 Total Bilirubin 0.40 mg/dL 0.2-1.0 Alkaline Phosphatase 90 U/L 34-104 Alt 29 U/L 7-52 Ast 29 U/L 13-39 Egfr Non- 108.6 >60 Egfr 139.6 >60 21 CBC Auto Diff 04/17/2017 White Blood Count 8.9 10^3/uL 3.5-10.8 Red Blood Count 4.45 10^6/uL 4.0-5.4 Hemoglobin 13.7 g/dL 12.0-16.0 Hematocrit 40 % 35-47 Mean Corpuscular Volume 91 fL 80-97 Mean Corpuscular Hemoglobin 31 pg 27-31 Mean Corpuscular HGB Conc 34 g/dL 31-36 Red Cell Distribution Width 15 % 10.5-15 Platelet Count 200 10^3/uL 150-450 Mean Platelet Volume 9 um3 7.4-10.4 Abs Neutrophils 5.3 10^3/uL 1.5-7.7 Abs Lymphocytes 2.9 10^3/uL 1.0-4.8 Abs Monocytes 0.5 10^3/uL 0-0.8 Abs Eosinophils 0.2 10^3/uL 0-0.6 Abs Basophils 0.1 10^3/uL 0-0.2 Abs Nucleated RBC 0 10^3/uL Granulocyte % 58.9 % 38-83 Lymphocyte % 32.5 % 25-47 Monocyte % 6.1 % 1-9 Eosinophil % 1.8 % 0-6 Basophil % 0.7 % 0-2 Nucleated Red Blood Cells % 0 Iron & Iron Binding Capacity 04/17/2017 Iron 75 g/dL 50-212 Unsaturated Iron Binding 377 g/dL Total Iron Binding Capacity 452 g/dL High 250-450 % Iron Saturation 17 % 15-55 Comp Metabolic Panel 01/07/2017 Sodium 136 mmol/L 133-145 Potassium 4.1 mmol/L 3.5-5.0 Chloride 101 mmol/L 101-111 Co2 Carbon Dioxide 28 mmol/L 22-32 Anion Gap 7 mmol/L 2-11 Glucose 195 mg/dL High 70-100 Blood Urea Nitrogen 18 mg/dL 6-24 Creatinine 0.82 mg/dL 0.51-0.95 BUN/Creatinine Ratio 22.0 High 8-20 Calcium 9.5 mg/dL 8.6-10.3 Total Protein 7.2 g/dL 6.4-8.9 Albumin 4.0 g/dL 3.2-5.2 Globulin 3.2 g/dL 2-4 Albumin/Globulin Ratio 1.3 1-3 Total Bilirubin 0.30 mg/dL 0.2-1.0 Alkaline Phosphatase 73 U/L 34-104 Alt 87 U/L High 7-52 Ast 76 U/L High 13-39 Egfr Non- 71.4 >60 Egfr 91.8 >60 22 CBC No Diff 01/07/2017 White Blood Count 7.4 10^3/uL 3.5-10.8 Red Blood Count 4.23 10^6/uL 4.0-5.4 Hemoglobin 12.8 g/dL 12.0-16.0 Hematocrit 38 % 35-47 Mean Corpuscular Volume 89 fL 80-97 Mean Corpuscular Hemoglobin 30 pg 27-31 Mean Corpuscular HGB Conc 34 g/dL 31-36 Red Cell Distribution Width 14 % 10.5-15 Platelet Count 223 10^3/uL 150-450 Mean Platelet Volume 9 um3 7.4-10.4 Comp Metabolic Panel 10/23/2016 Sodium 137 mmol/L 133-145 Potassium 4.0 mmol/L 3.5-5.0 Chloride 102 mmol/L 101-111 Co2 Carbon Dioxide 28 mmol/L 22-32 Anion Gap 7 mmol/L 2-11 Glucose 143 mg/dL High 70-100 Blood Urea Nitrogen 17 mg/dL 6-24 Creatinine 0.64 mg/dL 0.51-0.95 BUN/Creatinine Ratio 26.6 High 8-20 Calcium 10.0 mg/dL 8.6-10.3 Total Protein 7.1 g/dL 6.4-8.9 Albumin 4.1 g/dL 3.2-5.2 Globulin 3.0 g/dL 2-4 Albumin/Globulin Ratio 1.4 1-3 Total Bilirubin 0.30 mg/dL 0.2-1.0 Alkaline Phosphatase 66 U/L 34-104 Alt 49 U/L 7-52 Ast 46 U/L High 13-39 Egfr Non- 95.0 >60 Egfr 122.1 >60 23 Xray 09/19/2016 Shoulder Right 2+ VWS <pending> Liver Function Panel 08/11/2016 Total Protein 7.1 g/dL 6.4-8.9 Albumin 3.8 g/dL 3.2-5.2 Globulin 3.3 g/dL 2-4 Albumin/Globulin Ratio 1.2 1-3 Total Bilirubin 0.30 mg/dL 0.2-1.0 Direct Bilirubin 0.00 mg/dL Low 0.03-0.18 Alkaline Phosphatase 69 U/L 34-104 Alt 84 U/L High 7-52 Ast 79 U/L High 13-39 Lipid Profile (Trig/Chol/HDL) 08/11/2016 Triglycerides 134 mg/dL 24, 25 Cholesterol 172 mg/dL 24, 26 HDL Cholesterol 35.5 mg/dL 24, 27 LDL Cholesterol 110 mg/dL 24, 28 Comp Metabolic Panel 08/11/2016 Sodium 136 mmol/L 133-145 24 Potassium 4.4 mmol/L 3.5-5.0 24 Chloride 103 mmol/L 101-111 24 Co2 Carbon Dioxide 26 mmol/L 22-32 24 Anion Gap 7 mmol/L 2-11 24 Glucose 171 mg/dL High 70-100 24 Blood Urea Nitrogen 14 mg/dL 6-24 24 Creatinine 0.60 mg/dL 0.51-0.95 24 BUN/Creatinine Ratio 23.3 High 8-20 24 Calcium 9.1 mg/dL 8.6-10.3 24 Total Protein 7.0 g/dL 6.4-8.9 24 Albumin 3.9 g/dL 3.2-5.2 24 Globulin 3.1 g/dL 2-4 24 Albumin/Globulin Ratio 1.3 1-3 24 Total Bilirubin 0.30 mg/dL 0.2-1.0 24 Alkaline Phosphatase 64 U/L 34-104 24 Alt 83 U/L High 7-52 24 Ast 78 U/L High 13-39 24 Egfr Non- 102.7 >60 24 Egfr 132.1 >60 24, 29 Urine Microalbumin Random 08/11/2016 Urine Creatinine 118.06 mg/dL 24 Ur Microalbumin (mg/L) 43.4 mg/L 24 Urine Microalbumin/Creatinine 36.7 ug/mg High <31 24 Laboratory test 05/30/2016 Hemoglobin A1c 9.0 % High Less than 6.0 30, 31 finding (Glyco HGB) Comp Metabolic 05/30/2016 Sodium 136 mmol/L 133-145 30 Panel Potassium 4.2 mmol/L 3.5-5.0 30 Chloride 102 mmol/L 101-111 30 Co2 Carbon Dioxide 25 mmol/L 22-32 30 Anion Gap 9 mmol/L 2-11 30 Glucose 205 mg/dL High 70-100 30 Blood Urea Nitrogen 17 mg/dL 6-24 30 Creatinine 0.61 mg/dL 0.51-0.95 30 BUN/Creatinine Ratio 27.9 High 8-20 30 Calcium 9.0 mg/dL 8.6-10.3 30 Total Protein 7.0 g/dL 6.4-8.9 30 Albumin 3.8 g/dL 3.2-5.2 30 Globulin 3.2 g/dL 2-4 30 Albumin/Globulin Ratio 1.2 1-3 30 Total Bilirubin 0.40 mg/dL 0.2-1.0 30 Alkaline Phosphatase 74 U/L 34-104 30 Alt 69 U/L High 7-52 30 Ast 76 U/L High 13-39 30 Egfr Non- 100.7 >60 30 Egfr 129.6 >60 30, 32 CBC Auto Diff 05/30/2016 White Blood Count 5.9 10^3/uL 3.5-10.8 30 Red Blood Count 4.42 10^6/uL 4.0-5.4 30 Hemoglobin 13.0 g/dL 12.0-16.0 30 Hematocrit 39 % 35-47 30 Mean Corpuscular Volume 88 fL 80-97 30 Mean Corpuscular Hemoglobin 29 pg 27-31 30 Mean Corpuscular HGB Conc 33 g/dL 31-36 30 Red Cell Distribution Width 14 % 10.5-15 30 Platelet Count 225 10^3/uL 150-450 30 Mean Platelet Volume 10 um3 7.4-10.4 30 Abs Neutrophils 3.0 10^3/uL 1.5-7.7 30 Abs Lymphocytes 2.1 10^3/uL 1.0-4.8 30 Abs Monocytes 0.5 10^3/uL 0-0.8 30 Abs Eosinophils 0.2 10^3/uL 0-0.6 30 Abs Basophils 0.1 10^3/uL 0-0.2 30 Abs Nucleated RBC 0 10^3/uL 30 Granulocyte % 50.6 % 38-83 30 Lymphocyte % 35.2 % 25-47 30 Monocyte % 9.3 % High 1-9 30 Eosinophil % 3.0 % 0-6 30 Basophil % 1.9 % 0-2 30 Nucleated Red Blood Cells % 0.1 30 Laboratory test 05/30/2016 TSH (Thyroid Stim 1.84 mcIU/mL 0.34-5.60 30, 33 finding Horm) Laboratory test 02/20/2016 Point of Care 124 mg/dL High 74-106 34 finding Glucose Laboratory test 02/20/2016 Point of Care 176 mg/dL High 74-106 35 finding Glucose Liver Function Panel 02/07/2016 Total Protein 7.0 g/dL 6.4-8.9 36 Albumin 4.2 g/dL 3.2-5.2 36 Globulin 2.8 g/dL 2-4 36 Albumin/Globulin Ratio 1.5 1-3 36 Total Bilirubin 0.40 mg/dL 0.2-1.0 36 Direct Bilirubin 0.10 mg/dL 0.03-0.18 36 Indirect Bilirubin 0.3 mg/dL 0.3-1.0 36 Alkaline Phosphatase 67 U/L 34-104 36 Alt 69 U/L High 7-52 36 Ast 44 U/L High 13-39 36 Laboratory test finding 02/07/2016 Hepatitis A Antibody Negative Negative 36, 37 Total Hepatitis B Surface Ag Nonreactive Nonreactive 36, 38 Hepatitis B Core AB Total Negative Negative 36, 39 Comp Metabolic Panel 02/01/2016 Sodium 138 mmol/L 133-145 Potassium 4.3 mmol/L 3.5-5.0 Chloride 102 mmol/L 101-111 Co2 Carbon Dioxide 27 mmol/L 22-32 Anion Gap 9 mmol/L 2-11 Glucose 141 mg/dL High 70-100 Blood Urea Nitrogen 16 mg/dL 6-24 Creatinine 0.62 mg/dL 0.51-0.95 BUN/Creatinine Ratio 25.8 High 8-20 Calcium 9.3 mg/dL 8.6-10.3 Total Protein 7.1 g/dL 6.4-8.9 Albumin 4.2 g/dL 3.2-5.2 Globulin 2.9 g/dL 2-4 Albumin/Globulin Ratio 1.4 1-3 Total Bilirubin 0.30 mg/dL 0.2-1.0 Alkaline Phosphatase 65 U/L 34-104 Alt 90 U/L High 7-52 Ast 68 U/L High 13-39 Egfr Non- 98.9 >60 Egfr 127.1 >60 40 Laboratory test finding 02/01/2016 Hepatitis C Antibody Nonreactive Nonreactive Ferritin 218.5 ng/mL 11-307 Laboratory test 01/24/2016 Clotest SEE RESULT BELOW 41 finding Laboratory test 01/06/2016 Islet Antigen 2 0.00 nmol/L <=0.02 42 finding Antibody Anti Luis 65 Antibody 0.00 nmol/L <=0.02 43 Hemoglobin A1c 9.1 % High Less than 6.0 44 Comp Metabolic Panel 01/06/2016 Sodium 135 mmol/L 133-145 Potassium 3.9 mmol/L 3.5-5.0 Chloride 101 mmol/L 101-111 Co2 Carbon Dioxide 25 mmol/L 22-32 Anion Gap 9 mmol/L 2-11 Glucose 171 mg/dL High 70-100 Blood Urea Nitrogen 16 mg/dL 6-24 Creatinine 0.61 mg/dL 0.51-0.95 BUN/Creatinine Ratio 26.2 High 8-20 Calcium 9.2 mg/dL 8.6-10.3 Total Protein 7.0 g/dL 6.4-8.9 Albumin 4.1 g/dL 3.2-5.2 Globulin 2.9 g/dL 2-4 Albumin/Globulin Ratio 1.4 1-3 Total Bilirubin 0.30 mg/dL 0.2-1.0 Alkaline Phosphatase 77 U/L 34-104 Alt 69 U/L High 7-52 Ast 49 U/L High 13-39 Egfr Non- 100.7 >60 Egfr 129.6 >60 45 Laboratory test finding 11/03/2015 Vitamin B12 588 pg/mL 180-914 46 TSH (Thyroid Stim Horm) 1.79 ?IU/mL 0.34-5.60 47 Hemoglobin A1c (Glyco HGB) 6.7 % High Less than 6.0 48 Lipid Profile (Trig/Chol/HDL) 07/21/2015 Triglycerides 233 mg/dL 49 Cholesterol 183 mg/dL 50 HDL Cholesterol 40.3 mg/dL 51 LDL Cholesterol 96 mg/dL 52 Urine Microalbumin Random 07/21/2015 Ur Microalbumin (mg/L) 40.0 mg/L Urine Creatinine 144.27 mg/dL Urine Microalbumin/Creatinine 27.7 ug/mg <31 Comp Metabolic Panel 07/21/2015 Sodium 136 mmol/L 133-145 Potassium 4.3 mmol/L 3.5-5.0 Chloride 102 mmol/L 101-111 Co2 Carbon Dioxide 24 mmol/L 22-32 Anion Gap 10 mmol/L 2-11 Glucose 135 mg/dL High 70-100 Blood Urea Nitrogen 18 mg/dL 6-24 Creatinine 0.68 mg/dL 0.51-0.95 BUN/Creatinine Ratio 26.5 High 8-20 Calcium 9.4 mg/dL 8.6-10.3 Total Protein 6.8 g/dL 6.4-8.9 Albumin 4.2 g/dL 3.2-5.2 Globulin 2.6 g/dL 2-4 Albumin/Globulin Ratio 1.6 1-3 Total Bilirubin 0.40 mg/dL 0.2-1.0 Alkaline Phosphatase 69 U/L 34-104 Alt 34 U/L 7-52 Ast 26 U/L 13-39 Egfr Non- 89.2 >60 Egfr 114.7 >60 53 Laboratory test 07/21/2015 Hemoglobin A1c 7.0 % High Less than 6.0 54 finding (Glyco HGB) Laboratory test 04/20/2015 Point of Care 129 mg/dL High 74-106 55 finding Glucose Laboratory test 04/13/2015 Point of Care 119 mg/dL High 74-106 56 finding Glucose Laboratory test 03/31/2015 Surgical Pathology SEE RESULT 57 finding BELOW Laboratory test 03/15/2015 Hemoglobin A1c 6.2 5-7 finding Comp Metabolic 11/25/2014 Sodium 138 mmol/L 133-145 58 Panel Potassium 4.1 mmol/L 3.5-5.0 58 Chloride 104 mmol/L 101-111 58 Co2 Carbon Dioxide 24 mmol/L 22-32 58 Anion Gap 10 mmol/L 2-11 58 Glucose 150 mg/dL High 70-100 58 Blood Urea Nitrogen 18 mg/dL 6-24 58 Creatinine 0.71 mg/dL 0.51-0.95 58 BUN/Creatinine Ratio 25.4 High 8-20 58 Calcium 9.5 mg/dL 8.6-10.3 58 Total Protein 7.0 g/dL 6.4-8.9 58 Albumin 4.2 g/dL 3.2-5.2 58 Globulin 2.8 g/dL 2-4 58 Albumin/Globulin Ratio 1.5 1-3 58 Total Bilirubin 0.30 mg/dL 0.2-1.0 58 Alkaline Phosphatase 74 U/L 34-104 58 Alt 33 U/L 7-52 58 Ast 23 U/L 13-39 58 Egfr Non- 84.8 >60 58 Egfr 109.1 >60 58, 59 Laboratory test finding 11/25/2014 Hemoglobin A1c 7.6 % High Less than 6.0 58, 60 Lipid Profile 11/25/2014 Triglycerides 200 mg/dL 58, 61 (Trig/Chol/HDL) Cholesterol 177 mg/dL 58, 62 HDL Cholesterol 39.5 mg/dL 58, 63 LDL Cholesterol 98 mg/dL 58, 64 Laboratory test finding 08/03/2014 Hemoglobin A1c 6.5 5-7 Urine Microalbumin 03/18/2014 Ur Microalbumin (mg/L) 38.0 mg/dL <30 65, 66 Random Urine Creatinine 194.65 mg/dL 65 Urine Microalbumin/Creatinine 19.5 Less Than 31 65 Laboratory test 03/18/2014 Hemoglobin A1c 5.7 % Less than 6.0 65, 67 finding CBC Auto Diff 03/18/2014 White Blood Count 4.3 10^3/uL Low 4.8-10.8 65 Red Blood Count 4.21 10^6/uL 4.0-5.4 65 Hemoglobin 12.5 g/dL 12.0-16.0 65 Hematocrit 38 % 35-47 65 Mean Corpuscular Volume 89 fL 80-97 65 Mean Corpuscular Hemoglobin 30 pg 27-31 65 Mean Corpuscular HGB Conc 33 g/dL 31-36 65 Red Cell Distribution Width 14 % 10.5-15 65 Platelet Count 240 10^3/uL 150-450 65 Mean Platelet Volume 9 um3 7.4-10.4 65 Abs Neutrophils 1.7 10^3/uL 1.5-7.7 65 Abs Lymphocytes 1.8 10^3/uL 1.0-4.8 65 Abs Monocytes 0.6 10^3/uL 0-0.8 65 Abs Eosinophils 0.2 10^3/uL 0-0.6 65 Abs Basophils 0 10^3/uL 0-0.2 65 Abs Nucleated RBC 0 10^3/uL 65 Laboratory test finding 03/18/2014 Ferritin 23.9 ng/mL 11-307 65, 68 Manual Differential 03/18/2014 Neutrophil % 39 % 38-83 65 Lymphocytes % 42 % 25-47 65 Monocytes % 10 % 0-13 65 Eosinophils % 7 % High 0-6 65 Basophil % 2 % 0-2 65 RBC Morphology Normal Normal 65 Laboratory test 03/18/2014 Pathologist Review (SEE NOTE) 65, 69 finding Laboratory test 12/11/2013 Hemoglobin A1c 6.6 % High Less than 70 finding 6.0 Comp Metabolic 12/11/2013 Sodium 136 mmol/L 133-145 Panel Potassium 4.5 mmol/L 3.7-5.6 Chloride 102 mmol/L 101-111 Co2 Carbon Dioxide 27 mmol/L 22-32 Anion Gap 7 mmol/L 2-11 Glucose 132 mg/dL High 70-100 Blood Urea Nitrogen 20 mg/dL 6-24 Creatinine 0.62 mg/dL 0.51-0.95 BUN/Creatinine Ratio 32.3 High 8-20 Calcium 9.0 mg/dL 8.6-10.3 Total Protein 6.4 g/dL 6.4-8.9 Albumin 3.8 g/dL 3.2-5.2 Globulin 2.6 g/dL 2-4 Albumin/Globulin Ratio 1.5 1-3 Total Bilirubin 0.30 mg/dL 0.2-1.0 Alkaline Phosphatase 66 U/L 34-104 Alt 20 U/L 7-52 Ast 17 U/L 13-39 Egfr Non- 99.6 >60 Egfr 128.1 >60 71 Lipid Profile (Trig/Chol/HDL) 12/11/2013 Triglycerides 234 mg/dL 72 Cholesterol 170 mg/dL 73 HDL Cholesterol 37.0 mg/dL 74 LDL Cholesterol 86 mg/dL 75 Blood Culture 05/06/2013 Blood Culture (SEE NOTE) 76 CBC Auto Diff 05/06/2013 White Blood Count 17.4 10^3/uL High 4.8-10.8 Red Blood Count 4.20 10^6/uL 4.0-5.4 Hemoglobin 12.3 g/dL 12.0-16.0 Hematocrit 38 % 35-47 Mean Corpuscular Volume 89 fL 80-97 Mean Corpuscular Hemoglobin 29 pg 27-31 Mean Corpuscular HGB Conc 33 g/dL 31-36 Red Cell Distribution Width 15 % 10.5-15 Platelet Count 350 10^3/uL 150-450 Mean Platelet Volume 7 um3 Low 7.4-10.4 Abs Neutrophils 12.9 10^3/uL High 1.5-7.7 Abs Lymphocytes 2.8 10^3/uL 1.0-4.8 Abs Monocytes 1.4 10^3/uL High 0-0.8 Abs Eosinophils 0.1 10^3/uL 0-0.6 Abs Basophils 0.1 10^3/uL 0-0.2 Abs Nucleated RBC 0 10^3/uL Granulocyte % 74.2 % 38-83 Lymphocyte % 16.4 % Low 25-47 Monocyte % 8.3 % 1-9 Eosinophil % 0.3 % 0-6 Basophil % 0.8 % 0-2 Nucleated Red Blood Cells % 0 Laboratory test finding 05/06/2013 Monospot Negative Negative Comp Metabolic Panel 05/06/2013 Sodium 133 mmol/L 133-145 Potassium 3.1 mmol/L Low 3.5-5.0 Chloride 95 mmol/L Low 101-111 Co2 Carbon Dioxide 28.0 mmol/L 22-32 Anion Gap 10.0 mmol/L 2-11 Glucose 124 mg/dL High 70-100 Blood Urea Nitrogen 15 mg/dL 6-24 Creatinine 0.70 mg/dL 0.50-1.40 BUN/Creatinine Ratio 21.4 High 8-20 Calcium 9.2 mg/dL 8.1-9.9 Total Protein 8.0 g/dL 6.2-8.1 Albumin 3.2 g/dL Low 3.6-5.4 Globulin 4.8 g/dL High 2-4 Albumin/Globulin Ratio 0.7 Low 1-3 Total Bilirubin 0.5 mg/dL 0.4-1.5 Alkaline Phosphatase 80 U/L 30-110 Alt 16 U/L 14-54 Ast 17 U/L 12-42 Egfr Non- 86.9 >60 Egfr 111.7 >60 77 Laboratory test finding 05/06/2013 Amylase 36 U/L 20-120 Je[facility] Comprehensive 05/06/2013 Ebv Capsid Ag IgG Ab Positive Negative Ebv Capsid Ag IgM Ab Negative Negative Jeison-[facility] Nuclear Antigen Negative Negative Jeiosn-H[facility]ay Virus Interp See Comment 78 Laboratory test finding 04/30/2013 Throat Beta Strep (SEE NOTE) 79 Culture Laboratory test finding 04/30/2013 Rapid Strep A neg CBC Auto Diff 02/10/2013 White Blood Count 5.0 10^3/uL 4.8-10.8 Red Blood Count 4.24 10^6/uL 4.0-5.4 Hemoglobin 11.9 g/dL Low 12.0-16.0 Hematocrit 36 % 35-47 Mean Corpuscular Volume 84 fL 80-97 Mean Corpuscular Hemoglobin 28 pg 27-31 Mean Corpuscular HGB Conc 33 g/dL 31-36 Red Cell Distribution Width 20 % High 10.5-15 Platelet Count 234 10^3/uL 150-450 Mean Platelet Volume 9 um3 7.4-10.4 Abs Neutrophils 2.1 10^3/uL 1.5-7.7 Abs Lymphocytes 2.3 10^3/uL 1.0-4.8 Abs Monocytes 0.4 10^3/uL 0-0.8 Abs Eosinophils 0.1 10^3/uL 0-0.6 Abs Basophils 0 10^3/uL 0-0.2 Abs Nucleated RBC 0 10^3/uL Granulocyte % 42.7 % 38-83 Lymphocyte % 45.3 % 25-47 Monocyte % 8.6 % 1-9 Eosinophil % 2.5 % 0-6 Basophil % 0.9 % 0-2 Nucleated Red Blood Cells % 0.1 Laboratory test finding 02/10/2013 Ferritin < 10 ng/mL Low 11-307 Iron & Iron Binding Capacity 02/10/2013 Iron 90 g/dL 28-170 Unsaturated Iron Binding 464 g/dL Total Iron Binding Capacity 554 g/dL High 250-450 % Iron Saturation 16 % 15-55 Cell Morphology 02/10/2013 Hypochromasia 1+ Tear Drop Cells 1+ Elliptocyte 1+ Comp Metabolic Panel 02/10/2013 Sodium 138 mmol/L 133-145 Potassium 4.4 mmol/L 3.5-5.0 Chloride 103 mmol/L 101-111 Co2 Carbon Dioxide 28.0 mmol/L 22-32 Anion Gap 7.0 mmol/L 2-11 Glucose 109 mg/dL High 70-100 Blood Urea Nitrogen 12 mg/dL 6-24 Creatinine 0.70 mg/dL 0.50-1.40 BUN/Creatinine Ratio 17.1 8-20 Calcium 9.2 mg/dL 8.1-9.9 Total Protein 6.6 g/dL 6.2-8.1 Albumin 3.8 g/dL 3.6-5.4 Globulin 2.8 g/dL 2-4 Albumin/Globulin Ratio 1.4 1-3 Total Bilirubin 0.5 mg/dL 0.4-1.5 Alkaline Phosphatase 57 U/L 30-110 Alt 32 U/L 14-54 Ast 26 U/L 12-42 Egfr Non- 86.9 >60 Egfr 111.7 >60 80 Lipid Profile (Trig/Chol/HDL) 02/10/2013 Triglycerides 172 mg/dL 40-200 Cholesterol 166 mg/dL Less than 200 HDL Cholesterol 37 mg/dL Low 40-60 81 Cholesterol/HDL Ratio 4.5 Average High 1-4.44 LDL Cholesterol 94.6 mg/dL Less Than 100 82 Laboratory test 02/10/2013 Hemoglobin A1c 6.1 % High Less than 6.0 83 finding Urine Culture & 06/03/2012 M 84 Sensitivi --- <SEE NOTE> Ua Routine 06/03/2012 Ua Specific Hanna 1.015 Ua PH 6 Ua Color Yellow Ua Appera Cloudy Ua WBC Small Ua Protein 30+ Ua Glucose NEG Ua Ketones Neg Ua Bilirubin Neg Ua Urobilinogen Neg Ua Nitrite Positive Ua Occult Blood Large Lipid Profile (Trig/Chol/HDL) 05/08/2012 Triglyceride 145 mg/dL 40-200 Cholesterol 167 mg/dL Less Than 200 85 High Density Lipoprotein 37 mg/dL Low 40-60 86 Cholesterol/HDL Ratio 4.51 AVERAGE High 1-4.44 Low Density Lipoprotein 101 mg/dL High Less Than 100 87 Basic Metabolic Panel 05/08/2012 Sodium 135 mmol/L 135-145 Potassium 4.3 mmol/L 3.5-5.0 Chloride 102 mmol/L 101-111 Co2 (Carbon Dioxide) 26.0 mmol/L 22-32 Anion Gap 7.0 mmol/L 2-11 88 Glucose 103 mg/dL High 70-100 BUN 11 mg/dL 6-24 Creatinine 0.6 mg/dL 0.50-1.40 One Over Creatinine 1.66 BUN/Creatinine Ratio 18.3 8-20 Calcium 8.9 mg/dL 8.1-9.9 eGFR Non- 104.2 > 60 eGFR 134.0 > 60 89 Laboratory test finding 05/08/2012 Hemoglobin A1c 5.7 % Less Than 6.0 90 Iron & Iron Binding 05/08/2012 Iron Total 41 g/dL 28-170 Capacity Unsaturated Iron Binding 589 g/dL Total Iron Binding Capacity 630 g/dL High 250-450 % Iron Saturation 7 % Low 15-55 Laboratory test 05/08/2012 Ferritin < 10 NG/ML Low 11.0-307 finding Urine Culture & 11/29/2011 M 91 Sensitivi <SEE NOTE> Laboratory test 11/09/2011 Erythrocyte Sed Rate 11 MM/HR 0-30 finding C Reactive Protein 0.7 mg/dL High Less Than 0.5 Rheumatoid Factor < 15 IU/mL <15 92 Cyclic Citrullinated Pep Igg <15.6 U () 93 Laboratory test finding 11/06/2011 Hemoglobin A1c 5.9 % Less Than 6.0 94 , 95 Comp Metabolic Panel 11/06/2011 Sodium 132 mmol/L Low 135-145 94 Potassium 4.3 mmol/L 3.5-5.0 94 Chloride 98 mmol/L Low 101-111 94 Co2 (Carbon Dioxide) 26.0 mmol/L 22-32 94 Anion Gap 8.0 mmol/L 2-11 94, 96 Glucose 116 mg/dL High 70-100 94 BUN 12 mg/dL 6-24 94 Creatinine 0.6 mg/dL 0.50-1.40 94 One Over Creatinine 1.66 94 BUN/Creatinine Ratio 20.0 8-20 94 Calcium 8.7 mg/dL 8.1-9.9 94 Total Protein 6.6 GM/DL 6.2-8.1 94 Albumin 3.6 GM/DL 3.6-5.4 94 Globulin 3.0 GM/DL 2-4 94 Albumin/Globulin Ratio 1.2 1-3 94 Bilirubin Total 0.6 mg/dL 0.4-1.5 94, 97 Alkaline Phosphatase 56 U/L 30-110 94 Alt (SGPT) 36 U/L 14-54 94 Ast (Sgot) 26 U/L 12-42 94 eGFR Non- 104.2 > 60 94 eGFR 134.0 > 60 94, 98 Comp Metabolic Panel 03/26/2011 Sodium 139 mmol/L 135-145 Potassium 4.4 mmol/L 3.5-5.0 Chloride 109 mmol/L 101-111 Co2 (Carbon Dioxide) 26.0 mmol/L 22-32 Anion Gap 4.0 mmol/L 2-11 99 Glucose 114 mg/dL High 70-100 BUN 14 mg/dL 6-24 Creatinine 0.60 mg/dL 0.50-1.40 One Over Creatinine 1.60 BUN/Creatinine Ratio 23.3 High 8-20 Calcium 8.6 mg/dL 8.1-9.9 Total Protein 6.0 GM/DL Low 6.2-8.1 Albumin 3.5 GM/DL Low 3.6-5.4 Globulin 2.5 GM/DL 2-4 Albumin/Globulin Ratio 1.4 1-3 Bilirubin Total 0.5 mg/dL 0.4-1.5 100 Alkaline Phosphatase 60 U/L 30-110 Alt (SGPT) 18 U/L 14-54 Ast (Sgot) 19 U/L 12-42 eGFR Non- 104.6 > 60 eGFR 134.5 > 60 101 Lipid Profile (Trig/Chol/HDL) 03/26/2011 Triglyceride 139 mg/dL 40-200 Cholesterol 167 mg/dL Less Than 200 102 High Density Lipoprotein 40 mg/dL 40-60 103 Cholesterol/HDL Ratio 4.18 AVERAGE 1-4.44 Low Density Lipoprotein 99 mg/dL Less Than 100 104 Laboratory test finding 03/26/2011 Hemoglobin A1c 6.3 % High Less Than 6.0 105 Basic Metabolic Panel 09/21/2010 Sodium 134 mmol/L Low 135-145 Potassium 4.5 mmol/L 3.5-5.0 Chloride 102 mmol/L 101-111 Co2 (Carbon Dioxide) 25.0 mmol/L 22-32 Anion Gap 7.0 mmol/L 2-11 106 Glucose 146 mg/dL High 70-100 107 BUN 14 mg/dL 6-24 Creatinine 0.70 mg/dL 0.50-1.40 One Over Creatinine 1.40 BUN/Creatinine Ratio 20.0 8-20 Calcium 8.6 mg/dL 8.1-9.9 eGFR Non- 93.4 > 60 eGFR 113.0 > 60 108 Laboratory test finding 09/21/2010 Hemoglobin A1c 6.4 % High Less Than 6.0 109 Basic Metabolic Panel 03/15/2010 Sodium 137 mmol/L 135-145 Potassium 4.4 mmol/L 3.5-5.0 Chloride 108 mmol/L 101-111 Co2 (Carbon Dioxide) 24.0 mmol/L 22-32 Anion Gap 5.0 mmol/L 2-11 110 Glucose 123 mg/dL High 70-100 111 BUN 12 mg/dL 6-24 Creatinine 0.60 mg/dL 0.50-1.40 One Over Creatinine 1.60 BUN/Creatinine Ratio 20.0 8-20 Calcium 9.0 mg/dL 8.1-9.9 112 eGFR Non- 111.6 > 60 eGFR 135.0 > 60 113 Comp Metabolic Panel 02/02/2010 Sodium 137 mmol/L 135-145 94 Potassium 4.9 mmol/L 3.5-5.0 94 Chloride 103 mmol/L 101-111 94 Co2 (Carbon Dioxide) 28.0 mmol/L 22-32 94 Anion Gap 6.0 mmol/L 2-11 94, 114 Glucose 114 mg/dL High 70-100 94, 115 BUN 10 mg/dL 6-24 94 Creatinine 0.60 mg/dL 0.50-1.40 94 One Over Creatinine 1.60 94 BUN/Creatinine Ratio 16.7 8-20 94 Calcium 9.2 mg/dL 8.1-9.9 94, 116 Total Protein 6.5 GM/DL 6.2-8.1 94 Albumin 3.6 GM/DL 3.6-5.4 94 Globulin 2.9 GM/DL 2-4 94 Albumin/Globulin Ratio 1.2 1-3 94 Bilirubin Total 0.6 mg/dL 0.4-1.5 94, 117 Alkaline Phosphatase 64 U/L 30-110 94 Alt (SGPT) 24 U/L 14-54 94 Ast (Sgot) 22 U/L 12-42 94 eGFR Non- 111.6 > 60 94 eGFR 135.0 > 60 94, 118 Laboratory test finding 02/02/2010 Hemoglobin A1c 5.8 % Less Than 6.0 94 , 119 Lipid Profile 02/02/2010 Triglyceride 191 mg/dL 40-200 94 (Trig/Chol/HDL) Cholesterol 181 mg/dL Less Than 200 94, 120 High Density Lipoprotein 39 mg/dL Low 40-60 94, 121 Cholesterol/HDL Ratio 4.64 AVERAGE High 1-4.44 94 Low Density Lipoprotein 104 mg/dL High Less Than 100 94, 122 1 Unable to calculate due to low microalbumin 2 Because ethnic data is not always readily available, this report includes an eGFR for both -Americans and non- Americans. The National Kidney Disease Education Program (NKDEP) does not endorse the use of the MDRD equation for patients that are not between the ages of 18 and 70, are , have extremes of body size, muscle mass, or nutritional status, or are non- or non-. According to the National Kidney Foundation, irrespective of diagnosis, the stage of the disease is based on the level of kidney function: Stage Description GFR(mL/min/1.73 m(2)) 1 Kidney damage with normal or decreased GFR 90 2 Kidney damage with mild decrease in GFR 60-89 3 Moderate decrease in GFR 30-59 4 Severe decrease in GFR 15-29 5 Kidney failure <15 (or dialysis) 3 Desirable: <150 Borderline High: 150-199 High: 200-499 Very High: >500 4 Desirable: <200 Borderline High: 200-239 High: >239 5 Low: <40 Desirable: 40-60 High: >60 6 Desirable: <100 Near Optimal: 100-129 Borderline High: 130-159 High: 160-189 Very High: >189 7 Normal Range 180 to 914 Indeterminate Range 145 to 180 Deficient Range <145 8 Therapeutic target for the treatment of diabetes mellitus patients is <7% HBA1C, and in selective patients <6.0%. Please refer to [place] [employer] diabetic care guidelines for further information. 9 ADDITIONAL INFORMATION This test was developed and its performance characteristics determined by [facility] in a manner consistent with CLIA requirements. This test has not been cleared or approved by the U.S. Food and Drug Administration. Test Performed by: [facility] [address] [place] [id number] ADDITIONAL INFORMATION This test was developed and its performance characteristics determined by [facility] in a manner consistent with CLIA requirements. This test has not been cleared or approved by the U.S. Food and Drug Administration. Test Performed by: [facility] [address] [place] [address] 11 [id number] SEE RESULT BELOW Name: CELIA BRANHAM : [address]: Debbie Linares MD Acct: [id number] Unit: [id number] AGE: 61 Location: [facility] Re08/30/17 SEX: F Status: DEP ER SPEC: [id number] KIMI: 08/30/[address] [facility] [address]: Debbie Linares MD REQ: [id number] RECD: 08/30/17 STATUS: LA PEDRO DR: Liz Bennett MD _ SOURCE: URINE SPDESC: ORDERED: Urine Culture COMMENTS: [id number] Procedure Result Reported Site Urine Culture Final 08/31/17- 1256 ML No growth of clinically significant organisms * ML - MAIN LAB (PSC1) . END OF REPORT * ML=Testing performed at Main Lab DEPARTMENT OF PATHOLOGY, [address] [place] [address] Sam Calhoun M.D. Director [facility] # [id number] 13 Event Specialist Product Demonstrator: [id number] Because ethnic data is not always readily available, this report includes an eGFR for both -Americans and non- Americans. The National Kidney Disease Education Program (NKDEP) does not endorse the use of the MDRD equation for patients that are not between the ages of 18 and 70, are , have extremes of body size, muscle mass, or nutritional status, or are non- or non-. According to the National Kidney Foundation, irrespective of diagnosis, the stage of the disease is based on the level of kidney function: Stage Description GFR(mL/min/1.73 m(2)) 1 Kidney damage with normal or decreased GFR 90 2 Kidney damage with mild decrease in GFR 60-89 3 Moderate decrease in GFR 30-59 4 Severe decrease in GFR 15-29 5 Kidney failure <15 (or dialysis) 15 Normal Range 180 to 914 Indeterminate Range 145 to 180 Deficient Range <145 16 ADDITIONAL INFORMATION This test was developed and its performance characteristics determined by [facility] in a manner consistent with CLIA requirements. This test has not been cleared or approved by the [place] Food and Drug Administration. Test Performed by: [facility] - [address] [id number] ADDITIONAL INFORMATION This test was developed and its performance characteristics determined by [facility] in a manner consistent with CLIA requirements. This test has not been cleared or approved by the [place].S. Food and Drug Administration. Test Performed by: [facility] - [address] [id number] Normal Range 180 to 914 Indeterminate Range 145 to 180 Deficient Range <145 19 ADDITIONAL INFORMATION This test was developed and its performance characteristics determined by [facility] in a manner consistent with CLIA requirements. This test has not been cleared or approved by the [place]. Food and Drug Administration. Test Performed by: [facility] - [address] [id number] 20 ADDITIONAL INFORMATION This test was developed and its performance characteristics determined by [facility] in a manner consistent with CLIA requirements. This test has not been cleared or approved by the [place]. Food and Drug Administration. Test Performed by: [facility] - [address] [id number] Because ethnic data is not always readily available, this report includes an eGFR for both -Americans and non- Americans. The National Kidney Disease Education Program (NKDEP) does not endorse the use of the MDRD equation for patients that are not between the ages of 18 and 70, are , have extremes of body size, muscle mass, or nutritional status, or are non- or non-. According to the National Kidney Foundation, irrespective of diagnosis, the stage of the disease is based on the level of kidney function: Stage Description GFR(mL/min/1.73 m(2)) 1 Kidney damage with normal or decreased GFR 90 2 Kidney damage with mild decrease in GFR 60-89 3 Moderate decrease in GFR 30-59 4 Severe decrease in GFR 15-29 5 Kidney failure <15 (or dialysis) 22 Because ethnic data is not always readily available, this report includes an eGFR for both -Americans and non- Americans. The National Kidney Disease Education Program (NKDEP) does not endorse the use of the MDRD equation for patients that are not between the ages of 18 and 70, are , have extremes of body size, muscle mass, or nutritional status, or are non- or non-. According to the National Kidney Foundation, irrespective of diagnosis, the stage of the disease is based on the level of kidney function: Stage Description GFR(mL/min/1.73 m(2)) 1 Kidney damage with normal or decreased GFR 90 2 Kidney damage with mild decrease in GFR 60-89 3 Moderate decrease in GFR 30-59 4 Severe decrease in GFR 15-29 5 Kidney failure <15 (or dialysis) 23 Because ethnic data is not always readily available, this report includes an eGFR for both -Americans and non- Americans. The National Kidney Disease Education Program (NKDEP) does not endorse the use of the MDRD equation for patients that are not between the ages of 18 and 70, are , have extremes of body size, muscle mass, or nutritional status, or are non- or non-. According to the National Kidney Foundation, irrespective of diagnosis, the stage of the disease is based on the level of kidney function: Stage Description GFR(mL/min/1.73 m(2)) 1 Kidney damage with normal or decreased GFR 90 2 Kidney damage with mild decrease in GFR 60-89 3 Moderate decrease in GFR 30-59 4 Severe decrease in GFR 15-29 5 Kidney failure <15 (or dialysis) 24 FASTING 12 HOUR Due in July Copy Result to: DOE WHIPPLE ([id number]) 25 Desirable <150 Borderline high 150-199 High 200-499 Very High >500 26 Desirable <200 Borderline high 200-239 High >239 27 Low <40 Desirable: 40-60 High: >60 28 Desirable: <100 mg/dL Near Optimal: 100-129 mg/dL Borderline High: 130-159 mg/dL High: 160-189 mg/dL Very High: >189 mg/dL 29 Because ethnic data is not always readily available, this report includes an eGFR for both -Americans and non- Americans. The National Kidney Disease Education Program (NKDEP) does not endorse the use of the MDRD equation for patients that are not between the ages of 18 and 70, are , have extremes of body size, muscle mass, or nutritional status, or are non- or non-. According to the National Kidney Foundation, irrespective of diagnosis, the stage of the disease is based on the level of kidney function: Stage Description GFR(mL/min/1.73 m(2)) 1 Kidney damage with normal or decreased GFR 90 2 Kidney damage with mild decrease in GFR 60-89 3 Moderate decrease in GFR 30-59 4 Severe decrease in GFR 15-29 5 Kidney failure <15 (or dialysis) 30 [id number] Copy Result to: GILBERTO TORRES ([id number]) 31 Therapeutic target for the treatment of diabetes Mellitus patients is <7% HBA1C, and in selective patients <6.0%.Please refer to [place] [employer] Diabetic care guidelines for further information. 32 Because ethnic data is not always readily available, this report includes an eGFR for both -Americans and non- Americans. The National Kidney Disease Education Program (NKDEP) does not endorse the use of the MDRD equation for patients that are not between the ages of 18 and 70, are , have extremes of body size, muscle mass, or nutritional status, or are non- or non-. According to the National Kidney Foundation, irrespective of diagnosis, the stage of the disease is based on the level of kidney function: Stage Description GFR(mL/min/1.73 m(2)) 1 Kidney damage with normal or decreased GFR 90 2 Kidney damage with mild decrease in GFR 60-89 3 Moderate decrease in GFR 30-59 4 Severe decrease in GFR 15-29 5 Kidney failure <15 (or dialysis) 33 [id number] Copy Result to: GILBERTO TORRES ([id number]) 34 Event Specialist Product Demonstrator: [id number] FELICITA WEBSTER 35 Event Specialist Product Demonstrator: [id number] Donal Jade 36 [id number] 37 Test Performed by: [place] [address] Pulverizer Feeder: Glenn Brown II, M.D., Ph.D. 38 [id number] 39 Test Performed by: [place] [address] Pulverizer Feeder: Glenn Brown II, M.D., Ph.D. 40 Because ethnic data is not always readily available, this report includes an eGFR for both -Americans and non- Americans. The National Kidney Disease Education Program (NKDEP) does not endorse the use of the MDRD equation for patients that are not between the ages of 18 and 70, are , have extremes of body size, muscle mass, or nutritional status, or are non- or non-. According to the National Kidney Foundation, irrespective of diagnosis, the stage of the disease is based on the level of kidney function: Stage Description GFR(mL/min/1.73 m(2)) 1 Kidney damage with normal or decreased GFR 90 2 Kidney damage with mild decrease in GFR 60-89 3 Moderate decrease in GFR 30-59 4 Severe decrease in GFR 15-29 5 Kidney failure <15 (or dialysis) 41 SEE RESULT BELOW Name: CELIA BRANHAM : [address]: Parker Tolbert MD Acct: [id number] Unit: [id number] AGE: 60 Location: [facility] Re01/24/16 SEX: F Status: REG REF SPEC: [id number] KIMI: 01/24/[address] [facility] [address]: Parker Tolbert MD REQ: [id number] RECD: 01/24/16 STATUS: LA PEDRO DR: Liz Bennett MD _ SOURCE: [facility]: ORDERED: Clotest Procedure Result Reported Site Clotest Final 01/25/16748 ML Clotest Negative * ML - MAIN LAB ([facility]) . END OF REPORT * ML=Testing performed at Main Lab DEPARTMENT OF PATHOLOGY, [address] [place] [address] Sam Calhoun M.D. Director [facility] # [id number] 42 Test Performed by: [facility] - [address] [address] Pulverizer Feeder: Glenn Brown II, M.D., Ph.D. 43 Test Performed by: [facility] - [address] [address] Pulverizer Feeder: Glenn Brown II, M.D., Ph.D. 44 Therapeutic target for the treatment of diabetes Mellitus patients is <7% HBA1C, and in selective patients <6.0%.Please refer to [place] [employer] Diabetic care guidelines for further information. 45 Because ethnic data is not always readily available, this report includes an eGFR for both -Americans and non- Americans. The National Kidney Disease Education Program (NKDEP) does not endorse the use of the MDRD equation for patients that are not between the ages of 18 and 70, are , have extremes of body size, muscle mass, or nutritional status, or are non- or non-. According to the National Kidney Foundation, irrespective of diagnosis, the stage of the disease is based on the level of kidney function: Stage Description GFR(mL/min/1.73 m(2)) 1 Kidney damage with normal or decreased GFR 90 2 Kidney damage with mild decrease in GFR 60-89 3 Moderate decrease in GFR 30-59 4 Severe decrease in GFR 15-29 5 Kidney failure <15 (or dialysis) 46 Normal Range 180 to 914 Indeterminate Range 145 to 180 Deficient Range <145 47 DUE BEFORE October 48 Therapeutic target for the treatment of diabetes Mellitus patients is <7% HBA1C, and in selective patients <6.0%.Please refer to [place] [employer] Diabetic care guidelines for further information. 49 Desirable <150 Borderline high 150-199 High 200-499 Very High >500 50 Desirable <200 Borderline high 200-239 High >239 51 Low <40 Desirable: 40-60 High: >60 52 Desirable: <100 mg/dL Near Optimal: 100-129 mg/dL Borderline High: 130-159 mg/dL High: 160-189 mg/dL Very High: >189 mg/dL 53 Because ethnic data is not always readily available, this report includes an eGFR for both -Americans and non- Americans. The National Kidney Disease Education Program (NKDEP) does not endorse the use of the MDRD equation for patients that are not between the ages of 18 and 70, are , have extremes of body size, muscle mass, or nutritional status, or are non- or non-. According to the National Kidney Foundation, irrespective of diagnosis, the stage of the disease is based on the level of kidney function: Stage Description GFR(mL/min/1.73 m(2)) 1 Kidney damage with normal or decreased GFR 90 2 Kidney damage with mild decrease in GFR 60-89 3 Moderate decrease in GFR 30-59 4 Severe decrease in GFR 15-29 5 Kidney failure <15 (or dialysis) 54 Therapeutic target for the treatment of diabetes Mellitus patients is <7% HBA1C, and in selective patients <6.0%.Please refer to [place] [employer] Diabetic care guidelines for further information. 55 Event Specialist Product Demonstrator: [id number] KARLOS RAY 56 Event Specialist Product Demonstrator: [id number] AVINASH PRATER 57 SEE RESULT BELOW Name: BRANHAMMADDYCELIA : [address]: Parker Tolbert MD Acct: [id number] Unit: [id number] AGE: 59 Location: [facility] Re03/31/15 SEX: F Status: REG REF SPEC: [id number] KIMI: 03/31/15- SUBM DR: Parker Tolbert MD REQ: [id number] RECD: 03/31/151 STATUS: ARUN PEDRO DR: Liz Bennett MD _ ORDERED: LEVEL IV FINAL DIAGNOSIS Colon, rectum, biopsy: -- Hyperplastic polyp. CLINICAL HISTORY No additional information provided POST-OPERATIVE DIAGNOSIS Screening colonoscopy to cecum - tics, rectal polyp biopsied GROSS DESCRIPTION The specimen is received in formalin labeled, Biopsy Rectal Polyp, and consists of a 0.6 x 0.2 x 0.2 cm chaudhry-pink irregular soft tissue fragment, which is submitted entirely in one cassette. Signed (signature on file) Kalie William MD 10/04 1225 END OF REPORT * ML=Testing performed at Main Lab DEPARTMENT OF PATHOLOGY, [address] [place] [address] Sam Calhoun M.D. Director [facility] # [id number] 58 FASTING 10 HOUR~DO THIS IN October Because ethnic data is not always readily available, this report includes an eGFR for both -Americans and non- Americans. The National Kidney Disease Education Program (NKDEP) does not endorse the use of the MDRD equation for patients that are not between the ages of 18 and 70, are , have extremes of body size, muscle mass, or nutritional status, or are non- or non-. According to the National Kidney Foundation, irrespective of diagnosis, the stage of the disease is based on the level of kidney function: Stage Description GFR(mL/min/1.73 m(2)) 1 Kidney damage with normal or decreased GFR 90 2 Kidney damage with mild decrease in GFR 60-89 3 Moderate decrease in GFR 30-59 4 Severe decrease in GFR 15-29 5 Kidney failure <15 (or dialysis) 60 Therapeutic target for the treatment of diabetes Mellitus patients is <7% HBA1C, and in selective patients <6.0%.Please refer to [place] [employer] Diabetic care guidelines for further information. 61 Desirable <150 Borderline high 150-199 High 200-499 Very High >500 62 Desirable <200 Borderline high 200-239 High >239 63 Low <40 Desirable: 40-60 High: >60 64 Desirable <100 Near Optimal 100-129 Borderline high 130-159 High 160-189 Very High >189 65 DO THIS IN 3 MONTHS 66 Microalbuminuria in a random sample is defined as: Microalbumin/Creatinine ratio of 30-299 ug/mg. 67 Therapeutic target for the treatment of diabetes Mellitus patients is <7% HBA1C, and in selective patients <6.0%.Please refer to [place] [employer] Diabetic care guidelines for further information. 68 DO THIS IN 3 MONTHS 69 CBC and smear reviewed. Inverted PMN/lymph ratio noted. No blasts seen. Reviewed by Kalie William MD 70 Therapeutic target for the treatment of diabetes Mellitus patients is <7% HBA1C, and in selective patients <6.0%.Please refer to [place] [employer] Diabetic care guidelines for further information. 71 Because ethnic data is not always readily available, this report includes an eGFR for both -Americans and non- Americans. The National Kidney Disease Education Program (NKDEP) does not endorse the use of the MDRD equation for patients that are not between the ages of 18 and 70, are , have extremes of body size, muscle mass, or nutritional status, or are non- or non-. According to the National Kidney Foundation, irrespective of diagnosis, the stage of the disease is based on the level of kidney function: Stage Description GFR(mL/min/1.73 m(2)) 1 Kidney damage with normal or decreased GFR 90 2 Kidney damage with mild decrease in GFR 60-89 3 Moderate decrease in GFR 30-59 4 Severe decrease in GFR 15-29 5 Kidney failure <15 (or dialysis) 72 Desirable <150 Borderline high 150-199 High 200-499 Very High >500 73 Desirable <200 Borderline high 200-239 High >239 74 Low <40 Desirable: 40-60 High: >60 75 Desirable <100 Near Optimal 100-129 Borderline high 130-159 High 160-189 Very High >189 76 RUN DATE: 05/11/13 [facility] LAB LIVE PAGE 1 RUN TIME: [address] [place] [address] Specimen Inquiry Name: CEILA BRANHAM : [address]: Harmeet Messer MD Acct: [id number] Unit: [id number] AGE: 57 Location: ED Re05/06/13 SEX: F Status: DEP ER SPEC: [id number] KIMI: 05/06/13-[address] [facility] [address]: Gilberto LUNA REQ: [id number] RECD: 05/06/13 STATUS: LA PEDRO DR: Liz Messer MD _ SOURCE: BLOOD,VENO SPDESC: ORDERED: Blood Cult Procedure Result Verified Site Aerobic Culture Bottle Final 05/11/13- 2 ML No Growth Day 5 Anaerobic Culture Bottle Final 05/11/13- 2211 ML No Growth Day 5 END OF REPORT * ML=Testing performed at Main Lab DEPARTMENT OF PATHOLOGY, [address] [place] [address] Sam Calhoun M.D. Director [facility] Permit #[id number] 77 Because ethnic data is not always readily available, this report includes an eGFR for both -Americans and non- Americans. The National Kidney Disease Education Program (NKDEP) does not endorse the use of the MDRD equation for patients that are not between the ages of 18 and 70, are , have extremes of body size, muscle mass, or nutritional status, or are non- or non-. According to the National Kidney Foundation, irrespective of diagnosis, the stage of the disease is based on the level of kidney function: Stage Description GFR(mL/min/1.73 m(2)) 1 Kidney damage with normal or decreased GFR 90 2 Kidney damage with mild decrease in GFR 60-89 3 Moderate decrease in GFR 30-59 4 Severe decrease in GFR 15-29 5 Kidney failure <15 (or dialysis) 78 Results suggest recent infection. The detection of only anti-VCA IgG should be interpreted with caution in immunocompromised patients, as this population may demonstrate diminishing or undetectable levels of anti-EBNA IgG antibodies. In most populations, at least 90% of the adult population will have been infected with EBV sometime in the past and therefore, will be positive for anti-VCA/IgG and anti- EBNA. Antibodies to EBNA develop 6-8 weeks after primary infection and remain present for life. Presence of VCA/ IgM antibodies indicates recent primary infection with EBV. Test Performed by: [place] [address] Pulverizer Feeder: Akil Platt III, M.D. 79 RUN DATE: 05/02/13 [facility] LAB LIVE PAGE 1 RUN TIME: [address] [place] [address] Specimen Inquiry Name: CELIA BRANHAM : [address]: Melissa Turner NP Acct: [id number] Unit: [id number] AGE: 57 Location: [facility] Re04/30/13 SEX: F Status: REG REF SPEC: [id number] KIMI: 04/30/13-[address]: Melissa Turner NP REQ: [id number] RECD: 04/30/13931 STATUS: COMP _ SOURCE: THROAT SPDESC: ORDERED: Throat Beta Str QUERIES: Medent Number [id number] Procedure Result Verified Site Throat Beta Strep Culture Final 05/02/13- 08 ML Negative For Group A Beta Streptococcus END OF REPORT * ML=Testing performed at Main Lab DEPARTMENT OF PATHOLOGY, [address] [place] [address] Sam Calhoun M.D. Director [facility] Permit #[id number] 80 Because ethnic data is not always readily available, this report includes an eGFR for both -Americans and non- Americans. The National Kidney Disease Education Program (NKDEP) does not endorse the use of the MDRD equation for patients that are not between the ages of 18 and 70, are , have extremes of body size, muscle mass, or nutritional status, or are non- or non-. According to the National Kidney Foundation, irrespective of diagnosis, the stage of the disease is based on the level of kidney function: Stage Description GFR(mL/min/1.73 m(2)) 1 Kidney damage with normal or decreased GFR 90 2 Kidney damage with mild decrease in GFR 60-89 3 Moderate decrease in GFR 30-59 4 Severe decrease in GFR 15-29 5 Kidney failure <15 (or dialysis) 81 HDL Interpretation: Undesirable: High Risk: Less than 40 MG/DL Desirable: Low Risk: Greater than 60 MG/DL 82 LDL Interpretation: Low Risk Optimal Level: LDL Less than 100 MG/DL Near or Above Optimal: LDL 100-129 MG/DL Borderline High Risk: LDL 130-159 MG/DL High Risk: LDL 160-189 MG/DL Very High Risk: LDL Greater than 189 MG/DL 83 Therapeutic target for the treatment of diabetes Mellitus patients is <7% HBA1C, and in selective patients <6.0%.Please refer to [place] [employer] Diabetic care guidelines for further information. 84 RUN DATE: 06/05/12 [facility] NMI LIVE PAGE 1 RUN TIME: 0850 Specimen Inquiry RUN USER: INTERFACE Name: CELIA BRANHAM Status: REG REF Re06/03/12 Age/Sex: 56/F Unit#: [id number] [facility] [birth year] SPEC #: [id number] KMII: 06/03/12 STATUS: COMP REQ #: [id number] RECD: 06/03/[address] [facility] [address]: Melissa Edmonds SOURCE: URINE ENTR: 06/03/12 [facility] DR: ALE: ORDERED: URINE C S QUERIES: MEDENT REQUISITION # [id number] SPECIMEN DESCRIPTION: URINE, CLEAN CATCH ACT WKST: UR 06/04/12 #1 Procedure Result Verified Site > URINE CULTURE SENSITIVI Final -0850 ML Organism 1 ESCHERICHIA COLI COLONY COUNT >100,000 ORGANISMS/ML (MANY) 1. ESCHERICHIA COLI RX M.I.C. ------ --------- AMIKACIN S <=2 LEVOFLOXACIN S <=0.12 AMPICILLIN S 4 CEFAZOLIN S <=4 CEFTRIAXONE S <=1 CIPROFLOXACIN S <=0.25 GENTAMICIN S <=1 TIGECYCLINE S <=0.5 CEFTAZIDIME S <=1 IMIPENEM S <=1 NITROFURANTOIN S <=16 TRIMETH-SULFA S <=20 *These antibiotics are not available in the [facility] Formulary. Contact the Microbiology Department for any additional antibiotic reporting. [facility] Permit #[id number] [address] [place] [address] DEPARTMENT OF PATHOLOGY, [address] [place] [address] [facility] Permit #[id number] Sam Calhoun M.D. Director Laxmi Adamson M.D. Railroad Design Consultant 85 CHOLESTEROL INTERPRETATION: Desirable: Less than 200 MG/DL Borderline-High Risk: 200-239 MG/DL High-Risk: 240 MG/DL and over 86 HDL INTERPRETATION: Undesirable: High Risk: Less than 40 MG/DL Desirable: Low Risk: Greater than 60 MG/DL 87 LDL INTERPRETATION: Low Risk Optimal Level: LDL Less than 100 MG/DL Near or Above Optimal: LDL 100-129 MG/DL Borderline High Risk: LDL 130-159 MG/DL High Risk: LDL 160-189 MG/DL Very High Risk: LDL Greater than 189 MG/DL 88 Anion gap measurement may be of limited value in the presence of any alkalosis, especially in a combined acid base disorder. . 89 Because ethnic data is not always readily available, this report includes an eGFR for both -Americans and non- Americans. The National Kidney Disease Education Program (NKDEP) does not endorse the use of the MDRD equation for patients that are not between the ages of 18 and 70, are , have extremes of body size, muscle mass, or nutritional status, or are non- or non-. According to the National Kidney Foundation, irrespective of diagnosis, the stage of the disease is based on the level of kidney function: Stage Description GFR(mL/min/1.73 m(2)) 1 Kidney damage with normal or decreased GFR 90 2 Kidney damage with mild decrease in GFR 60-89 3 Moderate decrease in GFR 30-59 4 Severe decrease in GFR 15-29 5 Kidney failure <15 (or dialysis) 90 THERAPEUTIC TARGET FOR THE TREATMENT OF DIABETES MELLITUS PATIENTS IS <7% HBA1C, AND IN SELECTIVE PATIENTS <6.0%. PLEASE REFER TO [place] [employer] DIABETIC CARE GUIDELINES FOR FURTHER INFORMATION. 91 RUN DATE: 12/01/11 [facility] NMI LIVE PAGE 1 RUN TIME: 916 Specimen Inquiry RUN USER: INTERFACE Name: CELIA BRANHAM Status: REG REF Re11/29/11 Age/Sex: 56/F Unit#: [id number] Location: [facility] : 59 SPEC #: [id number] KIMI: 11/29/11 STATUS: LA REQ #: [id number] RECD: 11/29/[address] [facility] [address]: Donald BELLAMY,Liz Delatorre SOURCE: URINE ENTR: 11/29/[address]: ALEC: ORDERED: URINE C S [facility] # [id number] SPECIMEN DESCRIPTION: URINE, RANDOM Procedure Result Verified Site > URINE CULTURE SENSITIVI Final -916 ML Organism 1 STAPHYLOCOCCUS SAPROPHYTICUS Routine testing of urine isolates of S. saprophyticus is not advised, because infections respond to concentrations achieved in urine of antimicrobial agents commonly used to treat acute, uncomplicated urinary tract infections (e.g. nitrofurantoin, trimethoprim+/- sulfamethoxazole, or a fluoroquinolone). [facility] October 2001 COLONY COUNT >100,000 ORGANISMS/ML (MANY) [facility] Permit #[id number] [address] [place] [address] DEPARTMENT OF PATHOLOGY, [address] [place] [address] [facility] Permit #[id number] Sam Calhoun M.D. Director Laxmi Adamson M.D. Railroad Design Consultant 92 Test Performed by: [facility] Dpt of Lab Med and Pathology [address] [place] [address] Pulverizer Feeder: Akil Platt III, M.D. 93 -- REFERENCE VALUE -- <20.0 (Negative) Test Performed by: [facility] Dpt of Lab Med and Pathology [address] [place] [address] Pulverizer Feeder: Akil Platt III, M.D. 94 FASTING 95 THERAPEUTIC TARGET FOR THE TREATMENT OF DIABETES MELLITUS PATIENTS IS <7% HBA1C, AND IN SELECTIVE PATIENTS <6.0%. PLEASE REFER TO [place] [employer] DIABETIC CARE GUIDELINES FOR FURTHER INFORMATION. 96 Anion gap measurement may be of limited value in the presence of any alkalosis, especially in a combined acid base disorder. . 97 A metabolite of Naproxen, O-desmethylnaproxen, has been shown to interfere with the Jendrassik-Martinsdale method for measuring total bilirubin. Samples from patients who have taken Naproxen have shown spurious elevation in total bilirubin levels. 98 Because ethnic data is not always readily available, this report includes an eGFR for both -Americans and non- Americans. The National Kidney Disease Education Program (NKDEP) does not endorse the use of the MDRD equation for patients that are not between the ages of 18 and 70, are , have extremes of body size, muscle mass, or nutritional status, or are non- or non-. According to the National Kidney Foundation, irrespective of diagnosis, the stage of the disease is based on the level of kidney function: Stage Description GFR(mL/min/1.73 m(2)) 1 Kidney damage with normal or decreased GFR 90 2 Kidney damage with mild decrease in GFR 60-89 3 Moderate decrease in GFR 30-59 4 Severe decrease in GFR 15-29 5 Kidney failure <15 (or dialysis) 99 Anion gap measurement may be of limited value in the presence of any alkalosis, especially in a combined acid base disorder. . 100 A metabolite of Naproxen, O-desmethylnaproxen, has been shown to interfere with the Jendrassik-Martins[place] method for measuring total bilirubin. Samples from patients who have taken Naproxen have shown spurious elevation in total bilirubin levels. 101 Because ethnic data is not always readily available, this report includes an eGFR for both -Americans and non- Americans. The National Kidney Disease Education Program (NKDEP) does not endorse the use of the MDRD equation for patients that are not between the ages of 18 and 70, are , have extremes of body size, muscle mass, or nutritional status, or are non- or non-. According to the National Kidney Foundation, irrespective of diagnosis, the stage of the disease is based on the level of kidney function: Stage Description GFR(mL/min/1.73 m(2)) 1 Kidney damage with normal or decreased GFR 90 2 Kidney damage with mild decrease in GFR 60-89 3 Moderate decrease in GFR 30-59 4 Severe decrease in GFR 15-29 5 Kidney failure <15 (or dialysis) 102 CHOLESTEROL INTERPRETATION: Desirable: Less than 200 MG/DL Borderline-High Risk: 200-239 MG/DL High-Risk: 240 MG/DL and over 103 HDL INTERPRETATION: Undesirable: High Risk: Less than 40 MG/DL Desirable: Low Risk: Greater than 60 MG/DL 104 LDL INTERPRETATION: Low Risk Optimal Level: LDL Less than 100 MG/DL Near or Above Optimal: LDL 100-129 MG/DL Borderline High Risk: LDL 130-159 MG/DL High Risk: LDL 160-189 MG/DL Very High Risk: LDL Greater than 189 MG/DL 105 THERAPEUTIC TARGET FOR THE TREATMENT OF DIABETES MELLITUS PATIENTS IS <7% HBA1C, AND IN SELECTIVE PATIENTS <6.0%. PLEASE REFER TO [employer] DIABETIC CARE GUIDELINES FOR FURTHER INFORMATION. 106 Anion gap measurement may be of limited value in the presence of any alkalosis, especially in a combined acid base disorder. . 107 Note change in reference range as of 06/10/08. The change was based on recommendations from the [place] [employer]. 108 Because ethnic data is not always readily available, this report includes an eGFR for both -Americans and non- Americans. The National Kidney Disease Education Program (NKDEP) does not endorse the use of the MDRD equation for patients that are not between the ages of 18 and 70, are , have extremes of body size, muscle mass, or nutritional status, or are non- or non-. According to the National Kidney Foundation, irrespective of diagnosis, the stage of the disease is based on the level of kidney function: Stage Description GFR(mL/min/1.73 m(2)) 1 Kidney damage with normal or decreased GFR 90 2 Kidney damage with mild decrease in GFR 60-89 3 Moderate decrease in GFR 30-59 4 Severe decrease in GFR 15-29 5 Kidney failure <15 (or dialysis) 109 THERAPEUTIC TARGET FOR THE TREATMENT OF DIABETES MELLITUS PATIENTS IS <7% HBA1C, AND IN SELECTIVE PATIENTS <6.0%. PLEASE REFER TO [employer] DIABETIC CARE GUIDELINES FOR FURTHER INFORMATION. 110 Anion gap measurement may be of limited value in the presence of any alkalosis, especially in a combined acid base disorder. . 111 Note change in reference range as of 06/10/08. The change was based on recommendations from the [place] [employer]. 112 Please note change in reference range effective 08 . 113 Because ethnic data is not always readily available, this report includes an eGFR for both -Americans and non- Americans. The National Kidney Disease Education Program (NKDEP) does not endorse the use of the MDRD equation for patients that are not between the ages of 18 and 70, are , have extremes of body size, muscle mass, or nutritional status, or are non- or non-. According to the National Kidney Foundation, irrespective of diagnosis, the stage of the disease is based on the level of kidney function: Stage Description GFR(mL/min/1.73 m(2)) 1 Kidney damage with normal or decreased GFR 90 2 Kidney damage with mild decrease in GFR 60-89 3 Moderate decrease in GFR 30-59 4 Severe decrease in GFR 15-29 5 Kidney failure <15 (or dialysis) 114 Anion gap measurement may be of limited value in the presence of any alkalosis, especially in a combined acid base disorder. . 115 Note change in reference range as of 06/10/08. The change was based on recommendations from the [place] [employer]. 116 Please note change in reference range effective 08 . 117 A metabolite of Naproxen, O-desmethylnaproxen, has been shown to interfere with the [place]rass[place] method for measuring total bilirubin. Samples from patients who have taken Naproxen have shown spurious elevation in total bilirubin levels. 118 Because ethnic data is not always readily available, this report includes an eGFR for both -Americans and non- Americans. The National Kidney Disease Education Program (NKDEP) does not endorse the use of the MDRD equation for patients that are not between the ages of 18 and 70, are , have extremes of body size, muscle mass, or nutritional status, or are non- or non-. According to the National Kidney Foundation, irrespective of diagnosis, the stage of the disease is based on the level of kidney function: Stage Description GFR(mL/min/1.73 m(2)) 1 Kidney damage with normal or decreased GFR 90 2 Kidney damage with mild decrease in GFR 60-89 3 Moderate decrease in GFR 30-59 4 Severe decrease in GFR 15-29 5 Kidney failure <15 (or dialysis) 119 THERAPEUTIC TARGET FOR THE TREATMENT OF DIABETES MELLITUS PATIENTS IS <7% HBA1C, AND IN SELECTIVE PATIENTS <6.0%. PLEASE REFER TO [employer] DIABETIC CARE GUIDELINES FOR FURTHER INFORMATION. 120 CHOLESTEROL INTERPRETATION: Desirable: Less than 200 MG/DL Borderline-High Risk: 200-239 MG/DL High-Risk: 240 MG/DL and over 121 HDL INTERPRETATION: Undesirable: High Risk: Less than 40 MG/DL Desirable: Low Risk: Greater than 60 MG/DL 122 LDL INTERPRETATION: Low Risk Optimal Level: LDL Less than 100 MG/DL Near or Above Optimal: LDL 100-129 MG/DL Borderline High Risk: LDL 130-159 MG/DL High Risk: LDL 160-189 MG/DL Very High Risk: LDL Greater than 189 MG/DL Procedures Date CPT Code Description Status Comment 05/06/2017 Diabetic Retinal Eye Exam Completed 04/04/2017 Mammogram Completed 01/22/2017 94334 Laparscopy Surgery Gastric Completed Restrictive Procedure W/Bypass 01/22/2017 12619 Laparscopy Surgery Gastric Completed Restrictive Procedure W/Bypass 09/19/201607051 Inject/Drain Joint/Bursa Completed Major 05/04/2016 Diabetic Retinal Eye Exam Completed 04/02/2016 Mammogram Completed 02/20/2016 24488 Arthroscopy, Completed Knee,Surgical;Debridement/Sha ving Articular Cartldg 02/20/2016 00565 Arthroscopy, Completed Knee,Surgical;Debridement/Sha ving Articular Cartldg 11/09/2015 87166 Inject/Drain Joint/Bursa Completed Major 11/02/201547447 Inject/Drain Joint/Bursa Completed Major 10/26/2015 09785 Inject/Drain Joint/Bursa Completed Major 08/02/201521438 Inject/Drain Joint/Bursa Completed Major 03/31/2015 Colonoscopy Completed 03/28/2015 Colonoscopy Completed Hyperplastic polyp, f/u 10 yr. Document: 03/31/15 - Path/Colon Biopsy 03/23/2015 Mammogram Completed 03/15/2015 38098 EKG Tracing & Completed Interpretation 01/03/2015 Diabetic Retinal Eye Exam Completed 09/13/2014 Mammogram Completed 12/28/2013 Diabetic Retinal Eye Exam Completed 12/23/2012 98967 Tenotomy Elbow W/Debridement Completed Soft Tissue And Or Bone Open 07/25/2012 Mammogram Completed 04/04/2011 Mammogram Completed 02/10/2010 Mammogram Completed 05/01/2007 59250 EKG Tracing & Completed Interpretation 05/01/2007 67406 EKG Tracing & Completed Interpretation Encounters Type Date Location Provider CPT E/M Dx Office Visit 11/15/2017 [place], [address] Z98.84 9:00a Of [facility] FACS Office Visit 08/09/2017 [place], [address] Z98.84 9:00a Of [facility] FACS Office Visit 06/06/2017 [facility] Internal Medicine Liz Bennett, 62532 I10 8:40a - Shauna Frazier N77.1 M54.9 E11.9 Office Visit 05/09/2017 9:45a [facility] [place], [address] Z98.84 Of [facility] FACS Office Visit 01/25/2017 10:20a [facility] Internal Medicine Melissa Turner, N.P. 45954 I10 - Shauna Office Visit 12/06/2016 8:40a [facility] Internal Medicine Liz Bennett 48928 I10 - Shauna Frazier Office Visit 09/19/2016 2:00p [facility] Narayan Alvarez, 84800 M75.41 Of [place] BELLAMY S46.211A S46.011A M75.21 Office Visit 06/05/2016 8:40a [facility] Internal Medicine Liz Bennett 27647 E11.65 - Shauna Frazier I10 R74.0 Office Visit 04/20/2016 2:40p [facility] Internal Medicine Joel Lilly M.D. 55096 R60.9 - Shauna R60.0 Office Visit 03/08/2016 9:00a [facility] Internal Medicine Liz Bennett 86812 E11.65 - Shauna Frazier R74.0 R53.83 Z12.31 Office Visit 02/07/2016 9:00a [facility] Internal [facility] Liz Donald, 64120 E11.65 - Shauna Frazier R74.0 M25.569 Office Visit 12/21/2015 8:40a [facility] Carrie Valenzuela, 83575 M22.2x1 Of [place] SOMERS-C M22.2x2 Office Visit 11/08/2015 9:00a [facility] Internal Medicine Liz Bennett 02704 E11.65 - Shauna Frazier Office Visit 09/22/2015 10:20a [facility] Zamzam Magaña, 95621 M22.2x1 Of [place] CISNEROS-C M22.2x2 M17.0 Office Visit 07/26/2015 9:00a [facility] Internal Medicine Liz Bennett 87172 Z00.01 - Shauna Frazier E11.65 R41.3 H91.93 Office Visit 06/14/2015 1:00p [facility] Of Austyn Hobson M.D. 61287 717.7 C.M.A. Office Visit 05/17/2015 8:30a [facility] Of Austyn Hobson M.D. 83585 717.7 C.M.A. 717.89 355.71 Office Visit 03/15/2015 11:40a [facility] Internal Medicine Liz Bennett 84856 366.00 - Shauna Frazier V72.84 250.02 401.1 793.80 Office Visit 12/30/2014 4:00p [facility] Internal Medicine Lizdickson Bennett 69147 250.02 - Shauna Frazier Office Visit 11/30/2014 8:40a [facility] Liz Bennett 87178 250.02 - [place] Office Visit 08/05/2014 1:20p [facility] Internal Medicine Liz Bennett 48931 250.00 - Shauna Frazier 780.52 782.3 Office Visit 03/22/2014 8:40a [facility] Internal Medicine Liz Bennett 68349 250.00 - [place] M.D. 401.1 Office Visit 01/13/2014 8:40a [facility] Internal Medicine Liz Donald, 82672 250.00 - [place] M.D. Office Visit 12/15/2013 8:40a [facility] Internal Medicine Liz Donald, 14384 250.00 - [place] M.D. 401.1 285.9 V03.82 Office Visit 10/28/2013 1:20p [facility] Internal Medicine Liz Cotton, 70388 465.9 - [place] M.D. 401.1 790.21 Office Visit 09/30/2013 8:45a [facility] Kalina Robles, 54941 726.31 Of [facility] Office Visit 05/19/2013 9:40a [facility] Internal Medicine Melissa Turner, N.P. 81629 462 - [place] Office Visit 05/06/2013 11:20a [facility] Internal Medicine Melissa Turner, N.P. 96823 462 - [place] Office Visit 04/30/2013 11:40a [facility] Internal Medicine Melissa Turner, N.P. 11572 462 - [place] Office Visit 04/13/2013 9:15a [facility] Kalina Robles 99119 726.31 Of [facility] Office Visit 02/13/2013 9:40a [facility] Internal Medicine Liz Bennett 84463 401.1 - [place] M.D. 790.21 285.9 Office Visit 11/26/2012 11:15a [facility] Kalina Robles 31536 726.31 Of [facility] Office Visit 06/03/2012 4:20p [facility] Internal Medicine Melissa Turner, N.P. 26747 599.0 - [place] Office Visit 05/09/2012 9:00a [facility] Internal Medicine Liz Bennett 44593 401.1 - [place] M.D. 790.21 285.9 Office Visit 12/17/2011 11:40a [facility] Internal Medicine Melissa Turner, N.P. 66452 372.00 - [place] 465.9 Office Visit 11/29/2011 10:20a [facility] Internal Medicine Liz Cotton, 98854 599.0 - [place] M.D. Office Visit 11/09/2011 9:40a [facility] Internal Medicine Liz Cotton, 97153 790.21 - [place] M.D. 719.49 401.1 Office Visit 04/02/2011 8:40a DO Not Use Liz Cotton, 31629 401.1 [employer] Deputy Director[place] M.D. 790.21 V76.10 Office Visit 09/29/2010 11:30a DO Not Use Liz Cotton, 69502 401.1 [employer] Deputy Director[place] M.D. 790.21 477.9 Office Visit 08/24/2010 9:45a DO Not Use Liz Cotton, 19312 401.1 [employer] Deputy Director[place] M.D. 465.9 790.21 Office Visit 06/23/2010 1:15p DO Not Use Liz Cotton, 67044 401.1 [employer] Deputy Director[place] M.D. Office Visit 02/06/2010 2:00p DO Not Use Liz Cotton, 25016 V70.0 [employer] Deputy Director[place] M.D. 401.1 790.21 272.4 Office Visit 07/07/2009 1:15p DO Not Use RadJacqueline gavin, 89076 790.21 [employer] Deputy Director[place] M.D. 272.4 240.9 401.1 Office Visit 11/24/2008 8:30a DO Not Use RadJacqueline gavin, 74317 790.21 [employer] Deputy Director[place] M.D. 272.4 401.1 Office Visit 05/26/2008 8:30a DO Not Use RadJacqueline gavin, 83607 790.21 [employer] Deputy Director[place] M.D. 401.1 Office Visit 03/09/2008 11:45a DO Not Use Jacqueline Campbell, 94957 388.30 [employer] Deputy Director[place] M.D. 389.9 Office Visit 01/28/2008 8:45a DO Not Use RadJacqueline gavin, 98855 V70.0 [employer] Deputy Director[place] M.D. Office Visit 07/28/2007 8:45a DO Not Use RadJacqueline gavin, 76157 401.1 [employer] Deputy Director[place] M.D. Office Visit 05/28/2007 11:30a DO Not Use Jacqueline Campbell, 45195 401.1 [facility] 790.21 719.40 Office Visit 05/01/2007 3:30p DO Not Use Jacqueline Campbell, 23260 719.40 [facility] 401.1 782.3 Plan of Care Future Appointment(s):06/09/2018 8:40 am - Liz Bennett M.D. at [facility] Internal Medicine - Xoqoiealr25/19/2018 - Liz Bennett M.D.Z00.00 Encntr for general adult medical exam w/o abnormal findingsComments:VACCINES:Flu shot every year in the fall.Tetanus: last one done in 2007, booster due every 10 yearsPneumonia vaccine: done in 2013, booster at age 65Shingles vaccines: there are 2 shingles vaccines - Zostavax - available since 2005, 50% effective, recommended at age 60 - Shingrix - just released, 90% effective, recommended at age 50, insurance coverage details not yet availableSCREENING:Colonoscopy : last one done in 2014, follow up was recommended at 10 yearsMammogram: done 03/25/17Pap smear: done with [facility] [employer] in 2017Cholesterol: just checkedDiabetic eye exam: done 05/06/17E11.9 Type 2 diabetes mellitus without complicationsNew Medication: Atorvastatin Calcium 10 mgComments:You still have diabetes, but it's very well controlledStatins are recommended for all people with diabetes over the age of 40 Start low dose atorvastatin Recheck labs in 2-3 monthsFollow up:6 [id number] Encounter for immunization
--- NOTE | 2017-12-27 16:06 | UC ---
Eye Complaint HPI - HPI Summary HPI Summary: 62 y/o WF presents with left eye redness, itchiness, and drainage for the last two days. She tells me that two days ago, she woke up with her left eye red and itchy. These symptoms have progressed and today she woke up with mild yellow drainage from the left eye and crust formation. She wears glasses, but never contacts. Denies fever, chills, vision changes, pain, or working with any FBs. - History of Current Complaint Chief Complaint: UCEye Stated Complaint: EYE COMPLAINT Time Seen by Provider: 12/27/17 16:06 Hx Obtained From: Patient Hx Last Menstrual Period: BOOKMAKER MAP Onset/Duration: Sudden Onset Timing: Constant Severity Currently: None Pain Intensity: 0 Location of Injury: Conjunctiva, Sclera Character: Dull, Foreign Body Sensation Aggravating Factor(s): Blinking Alleviating Factor(s): Nothing Associated Signs And Symptoms: Positive: Drainage (Purulent) - Allergies/Home Medications Allergies/Adverse Reactions: Allergies Allergy/AdvReac Type Severity Reaction Status Date / Time No Known Allergies Allergy Verified 12/27/17 15:58 Home Medications: Home Medications Atorvastatin* [Lipitor*] 10 mg PO DAILY 12/27/17 [History Confirmed 12/27/17] PMH/Surg Hx/FS Hx/Imm Hx Previously Healthy: Yes - Surgical History Surgical History: Yes Surgery Procedure, Year, and Place: RT ELBOW. CATARACTS. TUBAL. Bariatric surgery - Family History Known Family History: Negative: Hypertension - Social History Lives: With Family Alcohol Use: Rare Alcohol Amount: 2 PER MONTH Substance Use Type: None Smoking Status (MU): Former Smoker Type: Cigarettes Amount Used/How Often: PACK A WEEK Have You Smoked in the Last Year: No When Did the Patient Quit Smoking/Using Tobacco: 30 YRS AGO Household Exposure Type: Cigarettes - Immunization History Most Recent Influenza Vaccination: fall 2015 Most Recent Tetanus Shot: UP TO DATE Most Recent Pneumonia Vaccination: HAS HAD Review of Systems Constitutional: Negative Skin: Negative Eyes: Drainage, Eye Redness ENT: Negative Respiratory: Negative Cardiovascular: Negative Neurological: Negative Psychological: Negative All Other Systems Reviewed And Are Negative: Yes Physical Exam Triage Information Reviewed: Yes Appearance: Well-Appearing, No Pain Distress, Well-Nourished Vital Signs: Initial Vital Signs Temp 97.4 F 12/27/17 15:54 Pulse 65 12/27/17 15:54 Resp 16 12/27/17 15:54 BP 141/90 12/27/17 15:54 Pulse Ox 100 12/27/17 15:54 Vital Signs Reviewed: Yes Eyes: Positive: Conjunctiva Inflamed - Left eye, Discharge - Left eye - mild purulent yellow, Other: - EOMI. PERRLA. ENT: Positive: Hearing grossly normal, Pharynx normal, TMs normal, Uvula midline. Negative: Pharyngeal erythema, Nasal congestion, Nasal drainage, TM bulging, TM dull, TM red, Tonsillar swelling, Tonsillar exudate, Hoarse voice, Sinus tenderness Neck: Positive: Supple, Nontender, No Lymphadenopathy Respiratory: Positive: Lungs clear, Normal breath sounds, No respiratory distress Cardiovascular: Positive: RRR, No Murmur, Pulses Normal Neurological: Positive: Alert Psychological: Positive: Age Appropriate Behavior Skin: Negative: rashes Eye Complaint Course/Dx - Course Course Of Treatment: Left eye conjunctivitis - Polytrim - Differential Dx/Diagnosis Provider Diagnoses: Left eye conjunctivitis Discharge - Discharge Plan Condition: Stable Disposition: HOME Prescriptions: Polymyx/Trimethoprim OPTH* [Polytrim OPHTH*] 1 drop LEFT EYE QID #1 btl Patient Education Materials: Conjunctivitis (ED) Referrals: Liz Bennett MD [Primary Care Provider] - Additional Instructions: If you develop a fever, shortness of breath, chest pain, new or worsening symptoms - please call your PCP or go to the ED. Your blood pressure was high at todays visit. Please see your primary provider within 4 weeks for recheck and re-evaluation.
== END 2017-12-27 16:20 | disposition home or self-care (01) ==
LOC: UCEAST 15:50
DX: H10.32 Unspecified acute conjunctivitis, left eye (principal); Z87.891 Personal history of nicotine dependence
CPT/HCPCS: 99212; G0463

== ENCOUNTER 2018-06-18 09:56 | Day surgery (SDC) | payer OTHER ==
--- NOTE | 2018-06-16 21:04 | HP ---
CC: Dr. Bennett * HISTORY AND PHYSICAL: DATE OF PLANNED ADMISSION AND SURGERY: 06/18/18 HISTORY OF PRESENT ILLNESS: Mrs. Branham is a 62-year-old white female who is admitted with a distal left ureteral calculus for cystoscopy, left ureteroscopy , laser lithotripsy and left ureteral stent placement. Mrs. Branham's history goes back to August 2017 when she presented to the emergency room with left flank pain. Noncontrast CT of the abdomen and pelvis which showed mild left hydronephrosis and the suggestion of a 4-mm calculus at the left ureterovesical junction. The patient was then followed in my office and had a follow-up renal ultrasound. The ultrasound showed resolution of the hydronephrosis and no distal calculi were seen. She has been having on and off episodes of irritative bladder symptoms with urgency, frequency, and suprapubic discomfort. She also has been having episodes of urinary tract infections, which have been controlled with estrogen vaginal cream and antibiotics as needed. The patient presented back to my office 2 days prior to this admission with persistent and increasing irritative bladder symptoms. She had mild left suprapubic discomfort. She did not have any left flank pain. Her urinalysis showed microscopic hematuria. She was again worked up with a cystoscopy which showed edema of the left trigone and ureteral orifice and the tip of a calculus was noted at the level of the orifice. Renal and full bladder ultrasound showed mild hydronephrosis and a 4-mm calculus at the ureterovesical junction with moderate distal ureteral wall edema. Considering the above history, it is likely this is the same stone that was noted back in August 2017 and was thought to have passed spontaneously. Its presence in the distal ureter would explain the irritative bladder symptoms the patient has been having. The other possibility is that in facy that original stone, and she formed another stone, and dropped it in the distal Lt ureter. With the recent findings, the patient is admitted for left ureteroscopy, laser lithotripsy, and placement of left ureteral stent. PAST MEDICAL HISTORY AND SYSTEM REVIEW: She is in very good health. She denies any cardiac or pulmonary diseases or symptoms. She is in very good health. MEDICATIONS: Her only prescription medication is Premarin cream twice a day. ALLERGIES: She denies any allergies to medications. PHYSICAL EXAMINATION GENERAL: She is a pleasant and healthy looking white female who is in no pain. VITAL SIGNS: Blood pressure 120/70, pulse of 80. LUNGS: Normal. HEART: Normal. ABDOMEN: She has mild left CVA tenderness. Rest of the abdominal exam is normal. IMPRESSION: A 4-mm distal left ureteral calculus possibly in the same position for the last several months causing irritative bladder symptoms and microscopic hematuria. PLAN: Left ureteroscopy, laser lithotripsy, left ureteral stent placement. I discussed the above plans with the patient and all their questions were answered. [id number]/CPS #: [id number] KARINA
[~2018-06-18 09:56] MED LIST changes: +Buffered Lidocaine 0.9% SYRIN* 5 ML/SYR SYRINGE INTRADERM ONE; -Buffered Lidocaine 1% SYRIN* 3 ML/SYR SYRINGE INTRADERM ONE; -Dexamethasone IV* 4 MG/ML 1 ML (4 MG) IV SLOW PU ONE
[2018-06-18] MEDS ORDERED: cefTRIAXone(*) 1 GM ADVAN/BAG ONE (10:03)
[2018-06-18] MEDS ORDERED: Iohexol 180 (CONTRAST) 10 ML SDV IV ONE (11:25)
[2018-06-18] MEDS ORDERED: Midazolam* 1 MG/ML 2 ML VIAL (2 MG) ONE (11:32)
[2018-06-18] MEDS ORDERED: fentaNYL* 50 MCG/ML 2 ML VIAL (100 MCG VIAL) ONE (11:32)
[2018-06-18] MEDS ORDERED: Propofol* 10 MG/ML 20 ML BTL IV PUSH ONE (11:40)
[2018-06-18] MEDS ORDERED: Naloxone* 0.4 MG/ML 1 ML VIAL IV PRN (12:12)
[2018-06-18] MEDS ORDERED: fentaNYL* 50 MCG/ML 2 ML VIAL (100 MCG VIAL) IV PRN (12:12)
[2018-06-18] MEDS ORDERED: Acetaminophen TAB* 325 MG PO PRN (12:12)
[2018-06-18] MEDS ORDERED: DiMENhydriNATE IV* 50 MG/ML VIAL IV PUSH PRN (12:12)
[2018-06-18] MEDS ORDERED: Ondansetron INJ* 2 MG/ML VIAL ONE (12:16)
[2018-06-18] MEDS ORDERED: Dexamethasone IV* 4 MG/ML 1 ML (4 MG) ONE (12:16)
[2018-06-18] MEDS ORDERED: Metoclopramide IV* 5 MG/ML 2 ML VIAL ONE (12:16)
[2018-06-18 13:29] VITALS: BP 132/78
--- NOTE | 2018-06-18 14:27 | RAD ---
INDICATION: Left ureteral stent surgeon COMPARISON: None FINDINGS: 6 seconds of fluoroscopy were provided for the urology department. Fluoroscopic spot imaging of the abdomen shows a retrograde examination correlating and left ureteral stent placement. CPT II Codes: G9500 (fluoro time doc)
--- NOTE | 2018-06-18 17:10 | OP ---
CC: Dr. Liz Bennett * DATE OF OPERATION: 06/18/18 - [facility] DATE OF : 59 SURGEON: Benjamin Ramirez MD ANESTHESIOLOGIST: Dr. Nash. ANESTHESIA: General. PRE-OP DIAGNOSIS: Distal left ureteral calculus. POST-OP DIAGNOSIS: Distal left ureteral calculus. OPERATIVE PROCEDURE: 1. Cystoscopy. 2. Left ureteroscopy and extraction of distal left ureteral calculus. 3. Left retrograde pyelography and placement of left ureteral stent (6-Albanian). INDICATIONS: Ms. Branham is a 62-year-old white female who had an episode of left renal colic secondary to a 4 mm distal Lt ureteral calculus in August 2017. She was followed with renal and full bladder ultrasounds and the calculus was not visualized, and was assumed that the calculus had passed spontaneously. She kept on having on and off episodes of irritative bladder symptoms, associated with microscopic hematuria, and symptoms of urinary tract infections. The bladder symptoms became worse recently. She had a cystoscopy in the office 2 days ago, which showed edema of the left trigone and orifice, and the tip of a stone was seen at the orifice. Renal and full bladder ultrasound showed mild left hydronephrosis and 4 to 5 mm calculus at the level of the left UVJ. Because of the above history, the duration of her symptoms, the above operation was advised and accepted. PATHOLOGY: At cystoscopy, there was edema of the left trigone and the left orifice. The tip of the stone was seen at the left orifice. The rest of the bladder wall looked normal. There were no suspicious bladder lesions seen. Upon left ureteroscopy, the calculus was noted just proximal to the orifice. It measured about 4 to 5 mm in size. It had the gross appearance of calcium oxalate stone. The stone was friable and broke into multiple pieces while it was basketed. Left retrograde pyelography showed no significant hydronephrosis. DESCRIPTION OF PROCEDURE: After successful general anesthesia, the patient was placed in the lithotomy position and was prepped and draped for a cystoscopy. Cystoscopy was performed. The bladder was inspected and the above findings were noted. A flexible tip guidewire was then introduced into the left orifice and was successfully passed past the stone and positioned in the area of the renal pelvis. A size 6.5 semirigid ureteroscope was then introduced inside the bladder. A flexible tip basket was introduced through the port of the ureteroscope and its flexible tip was introduced into the left orifice alongside the guidewire, allowing the atraumatic introduction of the ureteroscope inside the ureter. The calculus was identified. The basket was deployed and the stone was engaged breaking it in several pieces. The fragments were all extracted. There was a moderate degree of edema in the distal ureter. Retrograde pyelography was then performed. A size 6-Albanian stent was then placed with the proximal end coiling in the renal pelvis and the distal end coiling inside the bladder. There was good drainage of contrast from the kidney and no extravasation. A small fragment of the stone was sent for chemical analysis. The patient tolerated the procedure well and left the operating room in good condition. The plan is to see the patient back in about 8 days in the office and the stent will be removed. [id number] #: [id number] MTDD
== END 2018-06-18 13:34 | disposition home or self-care (01) ==
LOC: OR 09:56
PROVIDERS: ATTEND Urology
DX: N13.2 Hydronephrosis with renal and ureteral calculous obstruction (principal); R31.29 Other microscopic hematuria; Z87.440 Personal history of urinary (tract) infections; E11.9 Type 2 diabetes mellitus without complications
CPT/HCPCS: 74420; 82365; 88300; C1876; J0696; J1100; J2250; J2405; J2704; J2765; J3010

== ENCOUNTER 2019-11-21 08:46 | Emergency (ER) | payer OTHER ==
[2019-11-21 08:55] VITALS: BP 118/69
--- NOTE | 2019-11-21 09:20 | UC ---
Eye Complaint HPI - HPI Summary HPI Summary: 64 yo female with left eye irritation and redness x 1 day awoke with eye matted shut this am no fever no uri symptoms no photophobia - History of Current Complaint Chief Complaint: UCEye Stated Complaint: EYE ISSUE Time Seen by Provider: 11/21/19 09:11 Hx Obtained From: Patient Hx Last Menstrual Period: SPOT FACER Onset/Duration: Gradual Onset, Lasting Hours Timing: Constant Severity Initially: Mild Severity Currently: Mild Pain Intensity: 0 Pain Scale Used: 0-10 Numeric Location of Injury: Conjunctiva Aggravating Factor(s): Nothing Alleviating Factor(s): Nothing Associated Signs And Symptoms: Positive: Drainage (Purulent) - Allergies/Home Medications Allergies/Adverse Reactions: Allergies Allergy/AdvReac Type Severity Reaction Status Date / Time No Known Allergies Allergy Verified 11/21/19 08:55 PMH/Surg Hx/FS Hx/Imm Hx Previously Healthy: Yes Endocrine History: Dyslipidemia - Surgical History Surgical History: Yes Surgery Procedure, Year, and Place: RT ELBOW 2012. CATARACTS bilat with IOL. TUBal. Lap Adrianne-en-Y gastric bypass 2016. right knee arthroscopic 2014 approx - Family History Known Family History: Positive: Non-Contributory Negative: Hypertension - Social History Alcohol Use: Rare Alcohol Amount: 2 PER MONTH Substance Use Type: None Smoking Status (MU): Former Smoker Type: Cigarettes Amount Used/How Often: PACK A WEEK Have You Smoked in the Last Year: No When Did the Patient Quit Smoking/Using Tobacco: 40 YRS AGO Household Exposure Type: Cigarettes - Immunization History Most Recent Influenza Vaccination: fall 2015 Most Recent Tetanus Shot: UP TO DATE Most Recent Pneumonia Vaccination: HAS HAD Review of Systems All Other Systems Reviewed And Are Negative: Yes Constitutional: Positive: Negative Skin: Positive: Negative Eyes: Positive: Drainage, Eye Redness ENT: Positive: Negative Respiratory: Positive: Negative Cardiovascular: Positive: Negative Gastrointestinal: Positive: Negative Genitourinary: Positive: Negative Motor: Positive: Negative Neurovascular: Positive: Negative Musculoskeletal: Positive: Negative Neurological: Positive: Negative Psychological: Positive: Negative Physical Exam Triage Information Reviewed: Yes Appearance: Well-Appearing, No Pain Distress, Well-Nourished Vital Signs: Initial Vital Signs Temp 98.6 F 11/21/19 08:50 Pulse 60 11/21/19 08:50 Resp 20 11/21/19 08:50 BP 118/69 11/21/19 08:50 Pulse Ox 99 11/21/19 08:50 Vital Signs Reviewed: Yes Eyes: Positive: Conjunctiva Inflamed - L, Discharge - L scant ENT: Positive: Hearing grossly normal. Negative: Nasal congestion, Nasal drainage, Tonsillar swelling, Tonsillar exudate, Muffled voice, Hoarse voice Neck: Positive: Supple, Nontender, No Lymphadenopathy Respiratory: Positive: Lungs clear, Normal breath sounds, No respiratory distress, No accessory muscle use Cardiovascular: Positive: RRR, No Murmur Abdominal Exam: Normal Musculoskeletal: Positive: ROM Intact, No Edema Neurological: Positive: Alert Psychological Exam: Normal Skin Exam: Normal Eye Complaint Course/Dx - Differential Dx/Diagnosis Provider Diagnosis: Conjunctivitis, left eye Discharge ED - Sign-Out/Discharge Documenting (check all that apply): Patient Departure All imaging exams completed and their final reports reviewed: No Studies - Discharge Plan Condition: Stable Disposition: HOME Prescriptions: Polymyx/Trimethoprim OPTH* [Polytrim OPHTH*] 1 - 2 drop LEFT EYE QID 7 Days #1 btl Patient Education Materials: Conjunctivitis (ED) Referrals: Liz Bennett MD [Primary Care Provider] - 4 Days (if not better) - Billing Disposition and Condition Condition: STABLE Disposition: Home
== END 2019-11-21 09:36 | disposition home or self-care (01) ==
LOC: UCEAST 08:46
DX: H10.9 Unspecified conjunctivitis (principal); Z87.891 Personal history of nicotine dependence
CPT/HCPCS: 99212; G0463

== ENCOUNTER 2019-12-06 02:57 | Emergency (ER) | payer OTHER ==
--- NOTE | 2019-12-06 05:00 | ED ---
Back Pain - HPI Summary HPI Summary: 64 year old female presents to the ED with a chief complaint of back pain started 4 days ago. Patient says that the pain has radiated to her chest. Pain is constant, with no aggravating factors. No fever, dysuria, nausea, diarrhea, vomiting, or SOB. She reports anxiety and high blood pressure. Her blood pressure was 180/100 when self-checked yesterday. No history of HTN. Patient has been unable to sleep. She can eat and drink normally. Patient took Alleve for the pain yesterday morning, without any improvement. PSHx of barriatric surgery. Denies history of abdominal pain. History of DM. FHx of DM, and CAD. - History of Current Complaint Chief Complaint: EDChestPainROMI Stated Complaint: BACK PAIN/HIGH BP/CHEST PAIN PER PT Time Seen by Provider: 12/06/19 04:27 Hx Obtained From: Patient Hx Last Menstrual Period: MANAGER STONE Onset/Duration: Gradual Onset, Lasting Days, Still Present Onset/Duration: Started Days Ago, Still Present Timing: Constant, Lasting Days Back Pain Location: Radiates To - chest Severity Initially: Mild Severity Currently: Mild Pain Intensity: 3 Pain Scale Used: 0-10 Numeric Associated Signs And Symptoms: Positive: Other - high blood pressure, palpitations - Allergies/Home Medications Allergies/Adverse Reactions: Allergies Allergy/AdvReac Type Severity Reaction Status Date / Time No Known Allergies Allergy Verified 12/06/19 03:11 Home Medications: Home Medications Folic Acid/Multivit-Min/Lutein [Multi-Vitamin Gummies] 1 each PO DAILY 12/06/19 [History Confirmed 12/06/19] PMH/Surg Hx/FS Hx/Imm Hx Endocrine/Hematology History: Reports: Hx Diabetes - controlled with weight loss Denies: Hx Sickle Cell Disease Cardiovascular History: Denies: Hx Congestive Heart Failure, Hx Hypertension, Hx Pacemaker/ICD, Other Cardiovascular Problems/Disorders Respiratory History: Denies: Other Respiratory Problems/Disorders GI History: Denies: Other GI Disorders History: Reports: Hx Kidney Stones Denies: Hx Dialysis, Hx Renal Disease Musculoskeletal History: Reports: Hx Arthritis - FINGERS, KNEES, ANKLES, Hx Tendonitis - RIGHT ELBOW Denies: Other Musculoskeletal History Sensory History: Reports: Hx Cataracts - FARRAH, Hx Contacts or Glasses - cheaters Denies: Hx Hearing Aid Opthamlomology History: Reports: Hx Cataracts - FARRAH, Hx Contacts or Glasses - cheaters Neurological History: Denies: Other Neuro Impairments/Disorders Psychiatric History: Denies: Hx Panic Disorder - Cancer History Hx Chemotherapy: No Hx Radiation Therapy: No - Surgical History Surgery Procedure, Year, and Place: RT ELBOW 2013. CATARACTS bilat with IOL. TUBal. Lap Adrianne-en-Y gastric bypass 2016. right knee arthroscopic 2014 approx Hx Anesthesia Reactions: No - Immunization History Date of Influenza Vaccine: 07/21/2019 Infectious Disease History: No Infectious Disease History: Denies: Traveled Outside the [place] in Last 30 Days - Family History Known Family History: Positive: Non-Contributory Negative: Hypertension - Social History Alcohol Use: Rare Alcohol Amount: 2 PER MONTH Substance Use Type: Reports: None Smoking Status (MU): Former Smoker Type: Cigarettes Amount Used/How Often: PACK A WEEK Have You Smoked in the Last Year: No Review of Systems - ROS Summary Review of Systems Summary: Home Medications Medication Instructions Recorded Confirmed Type Atorvastatin* [Lipitor*] 5 mg PO QAM 12/27/17 12/06/19 History Calcium Carbonate/Vitamin D3 1 each PO QAM 06/17/18 12/06/19 History [Calcium 600-Vit D3 800 Caplet] Folic Acid/Multivit-Min/Lutein 1 each PO DAILY 12/06/19 12/06/19 History [Multi-Vitamin Gummies] Negative: Fever Positive: Palpitations, Chest Pain Negative: Shortness Of Breath Negative: Vomiting, Diarrhea, Nausea Negative: dysuria Positive: Myalgia - Back pain Positive: Anxious All Other Systems Reviewed And Are Negative: Yes Physical Exam - Summary Physical Exam Summary: General: Well-developed, Well-nourished female. No acute distress. Mildly anxious appearing. HEENT: Normocephalic, Atraumatic. Eyes: Conjuctiva normal, PERRL. Ears: TMs within normal limits. Nares: (-) discharge, (-) erythema. Oropharynx: Clear, mucous membranes moist, (-) exudates. Neck: Soft, FROM, (-) lymphadenopathy, (-) thyromegaly, (-) JVD. Cardiovascular: Normal sinus rhythm, (-) murmur. Lungs: Clear to auscultation bilaterally (-) wheezes, (-) rales, (-) rhonchi. Abdomen: Soft, non-tender, non-distended, (-) organomegaly, normal bowel sounds. Back: (-) CVA tenderness Extremities: No edema. Indicates her pain is at the left shoulder blade, around T5-6. Skin: Warm, dry, (-) rash. Neuro: Alert and oriented x3, no focal deficits. Psychiatric: Mood normal, affect normal. Triage Information Reviewed: Yes Vital Signs On Initial Exam: Initial Vitals Temp Pulse Resp BP Pulse Ox 97.5 F 104 16 177/81 100 12/06/19 03:08 12/06/19 03:08 12/06/19 03:08 12/06/19 03:08 12/06/19 03:08 Vital Signs Reviewed: Yes Procedures - Sedation Patient Received Moderate/Deep Sedation with Procedure: No Diagnostics - Vital Signs Vital Signs Temp Pulse Resp BP Pulse Ox 12/06/19 04:23 17 127/83 12/06/19 04:00 16 12/06/19 03:53 20 128/80 12/06/19 03:23 17 140/88 12/06/19 03:08 97.5 F 104 16 177/81 100 - Laboratory Result Diagrams: 12/06/19 05:07 12/06/19 05:07 Lab Statement: Any lab studies that have been ordered have been reviewed, and results considered in the medical decision making process. - Radiology CXR Radiology Interpretation Completed By: Radiologist Summary of Radiographic Findings: Patient Name: BRENDA MARTINEZ Medical Record#: [id number]. Ordering Physician: Radha Miller MD Acct.#: [id number]. : 1955 Age: 64 Sex: F Location: EMERGENCY DEPARTMENT. Exam Date: 12/06/19613 ADM Status: REG ER. Order Information: CT CHEST W. Accession Number: [id number]. CPT: 07331 ADDENDUM. Addendum created by Trino Iraheta MD on 12/06/2019 7:41:44 AM EST. The 1st study was performed without contrast enhancement. The 2nd study has. contrast located in the systemic circulation. The opacification of the. pulmonary arteries are less than optimal. No evidence of clot in the main. pulmonary artery. Unable to assess the distal segmental and subsegmental. vessels. No evidence of an aortic dissection. Two phase study of the chest. The 1st phase was performed without contrast and. the 2nd phase was performed with contrast in which the contrast is located. predominantly in the systemic circulation. Initial report created on 12/06/2019 7:23:35 AM EST. PROCEDURE INFORMATION: Exam: CT Chest With Contrast. Exam date and time: 12/06/2019 6:28 AM. Age: 64 years old. Clinical indication: Chest pain; Additional info: Left pleuritic chest pain. TECHNIQUE: Imaging protocol: Computed tomography of the chest with intravenous contrast. Radiation optimization: All CT scans at this facility use at least one of these. dose optimization techniques: automated exposure control; mA and/or kV. adjustment per patient size (includes targeted exams where dose is matched to. clinical indication); or iterative reconstruction. Contrast material: OMNI 300; Contrast volume: 61 ml; Contrast route: IV;. COMPARISON: OT CXR CHEST PA LAT 2 VWS 06/06/2017 9:49 AM. FINDINGS: Lungs: Study was performed without IV contrast. No pulmonary consolidation. Pleural space: Unremarkable. No pneumothorax. No pleural effusion. Heart: Cardiac size is normal. No pericardial thickening or effusion. Mild. coronary calcification. Mediastinum : No mediastinal mass. Aorta: No aortic aneurysm. Lymph nodes: No mediastinal adenopathy. Bones/joints: Spondylotic changes thoracic spine. No evidence of a fracture or. malalignment. Soft tissues: Gastro soft soft vaginal surgery. Other findings: The thoracic cage is intact. IMPRESSION: 1. Study was performed without IV contrast. No pulmonary consolidation. No. pleural effusion or pneumothorax. 2. The appearance of the thoracic cage appears intact. This report is only to be considered final once signed by the Provider( s) as displayed in the "<Electronically Signed by >" field (s). Absence of a. signature indicates the report is in a draft status and still needs to be finalized. In the event this document was created by someone other than the. signing Provider, the individual initiating the document will be listed in the "Entered by:" or "Dictated by:" romero. 1 of 3 - EKG 0303 Cardiac Rate: NL - 94 bpm EKG Rhythm: Sinus Rhythm ST Segment: Normal Ectopy: None Summary of EKG Findings: EKG at 0303 reveals normal sinus rhythm with rate of 94 BPM, no acute changes, no ischemic changes. This EKG was reviewed and interpreted by Dr. Miller. Re-Evaluation - Re-Evaluation First Eval Comment: reviewed CT with radiology - addendum to note - no pathology noted on CT - no clot in main vessels - suboptimal for segmental. VSS - improved in ED - reviewed trend. I examined pt - pain in left paraspinal mid thoracic to scapula. worse with supine. mild reproducible. has been taking motrin 600mg intermittent. pt is s/p gastric bypass - no abdominal pain - no n/v. reviweed labs. will add lipase. if neg - anticipate discharge. APAP Q6hr. flexeril - precautions discussed. f/u with Dr. Bennett. strict return precautions. pt comfortable and in agreement with plan Back Pain Course/Dx - Diagnoses Provider Diagnoses: Left-sided back pain Discharge ED - Sign-Out/Discharge Documenting (check all that apply): Sign-Out Patient Signing out patient TO: Yelitza Zepeda - Sign out from Dr. Miller to Dr. Zepeda at change of shifts at 0700 on 12/06/19 - Discharge Plan Condition: Good Disposition: HOME Prescriptions: Cyclobenzaprine TAB* [Flexeril 10 MG TAB*] 5 - 10 mg PO Q8HR #10 tab Patient Education Materials: Back Pain (ED) Additional Instructions: - Apply heat to the area of discomfort - slow gentle stretching - Tylenol every 6 hours for pain Okay to take muscle relaxer as prescribed - this will make you sleepy - do not drive, operate machinery or drink alcohol while taking flexeril - contact your doctor tomorrow morning to schedule a follow-up appointment If you have increased pain, shortness of breath, fever, vomiting, or any other concerns it is recommended you return for further evaluation - Billing Disposition and Condition Condition: GOOD Disposition: Home - Attestation Statements Document Initiated by Scribe: Yes Documenting Scribe: Melvin Lopez Provider For Whom Scribe is Documenting (Include Credential): Radha Miller MD Scribe Attestation: Melvin Randall, scribed for Radha Miller MD on 12/06/19 at 0823. Scribe Documentation Reviewed: Yes Provider Attestation: The documentation as recorded by the scribeMelvin accurately reflects the service I personally performed and the decisions made by me, Radha Miller MD Status of Scribe Document: Viewed
[2019-12-06 05:18] LABS: ABS Eosinophils 0.1 10^3/ul (0-0.6); ABS Lymphocytes 1.4 10^3/ul (1.0-4.8); ABS Monocytes 0.5 10^3/ul (0-0.8); ABS Neutrophils 5.2 10^3/ul (1.5-7.7); Eosinophil % 0.8 %; Hematocrit 36 % (35-47); Hemoglobin 12.4 g/dL (12.0-16.0); Lymphocyte % 19.7 %; Mean Corpuscular HGB Conc 35 g/dL (31-36); Mean Corpuscular Hemoglobin 31 pg (27-31); Mean Corpuscular Volume 90 fL (80-97); Mean Platelet Volume 7.9 fL (7.4-10.4); Platelet Count 209 10^3/uL (150-450); Red Blood Count 3.99 10^6 /uL (3.70-4.87); Red Cell Distribution Width 13 % (10-15); White Blood Count 7.2 10^3/uL (3.5-10.8)
[2019-12-06 05:24] LABS: INR 1.05 (0.82-1.09)
[2019-12-06 05:38] LABS: Albumin 4.2 g/dL (3.2-5.2); Calcium 9.2 mg/dL (8.6-10.3); Potassium 3.9 mmol/L (3.5-5.0); Total Bilirubin 0.3 mg/dL (0.2-1.0)
[2019-12-06 05:44] LABS: Albumin/Globulin Ratio 1.6 (1-3); BUN/Creatinine Ratio 25.5 (8-20); EGFR African American 135.5 (>60); Globulin 2.7 g/dL (2-4); Total Protein 6.9 g/dL (6.4-8.9)
[2019-12-06] MEDS ORDERED: Iohexol 300* (CONTRAST) 10 ML SDV IV ONE (06:28)
--- NOTE | 2019-12-06 07:18 | ED ---
Progress - Progress Note Progress Note: Patient is a sign out from Dr. Miller to Dr. Zepeda at change of shifts at 0700 on 12/07/19, pending chest CT. re-eval, and dispo. - Results/Orders Results/Orders: CHEST CT IMPRESSION: 1. Study was performed without IV contrast. No pulmonary consolidation. No pleural effusion or pneumothorax. 2. The appearance of the thoracic cage appears intact. Re-Evaluation - Re-Evaluation First Eval Comment: reviewed CT with radiology - addendum to note - no pathology noted on CT - no clot in main vessels - suboptimal for segmental. VSS. I examined pt - pain in left paraspinal mid thoracic to scapula. worse with supine. mild reproducible. has been taking motrin 600mg intermittent. pt is s/p gastric bypass - no abdominal pain - no n/v. reviweed labs. will add lipase. if neg - anticipate discharge. APAP Q6hr. flexeril - precautions discussed. f/u with Dr. Bennett. strict return precautions. pt comfortable and in agreement with plan Course/Dx - Diagnoses Provider Diagnoses: Left-sided back pain Is Visit Related: No - Provider Notifications Discussed Care Of Patient With: Radha Miller - ED Time Discussed With Above Provider: 07:00 Instructed by Provider To: Other - Spoke to Dr. Miller about patient's condition. Discharge ED - Sign-Out/Discharge Documenting (check all that apply): Patient Departure, Receiving Sign-Out Receiving patient FROM: Radha Miller - Discharge Plan Condition: Good Disposition: HOME Patient Education Materials: Back Pain (ED) Additional Instructions: - Apply heat to the area of discomfort - slow gentle stretching - Tylenol every 6 hours for pain Okay to take muscle relaxer as prescribed - this will make you sleepy - do not drive, operate machinery or drink alcohol while taking flexeril - contact your doctor tomorrow morning to schedule a follow-up appointment If you have increased pain, shortness of breath, fever, vomiting, or any other concerns it is recommended you return for further evaluation - Billing Disposition and Condition Condition: GOOD Disposition: Home - Attestation Statements Document Initiated by Scribe: Yes Documenting Scribe: Melvin Lopez Provider For Whom Scribe is Documenting (Include Credential): Yelitza Zepeda MD Scribe Attestation: Melvin Randall, scribed for Yelitza Zepeda MD on 12/06/19 at 0814. Scribe Documentation Reviewed: Yes Provider Attestation: The documentation as recorded by the scribe, Melvin Lopez accurately reflects the service I personally performed and the decisions made by me, Yelitza Zepeda MD Status of Scribe Document: Viewed
[2019-12-06] MEDS ORDERED: Acetaminophen TAB* 325 MG PO ONE (07:57)
[2019-12-06 08:32] VITALS: BP 148/85
== END 2019-12-06 08:31 | disposition home or self-care (01) ==
LOC: ED 02:57
DX: M54.9 Dorsalgia, unspecified (principal); E11.9 Type 2 diabetes mellitus without complications; Z98.51 Tubal ligation status; Z98.84 Bariatric surgery status; Z87.891 Personal history of nicotine dependence; Z79.899 Other long term (current) drug therapy
CPT/HCPCS: 36415; 71046; 71260; 80053; 83690; 83880; 84484; 85025; 85610; 93005; 99283; A9270-GY